=== PATIENT | male | born 1995 | race Caucasian/White ===

== ENCOUNTER 2025-05-10 20:20 | Emergency (ER) | payer BC, SELFPAY ==
--- NOTE | ~2025-05-10 | XR_ITS ---
EXAMINATION: XR chest 1V portable Exam Date/Time: 05/10/2025 21:29 CDT HISTORY: fluid overload Comparison: None. RESULT: Lines, tubes, and devices: None. Lungs and pleura: Clear. Cardiomediastinal silhouette: Unremarkable. Other: No acute osseous or upper abdominal finding. IMPRESSION: No acute cardiopulmonary process. Reviewed, dictated and finalized at location K.
[2025-05-10 20:23] VITALS: BP 143/84; PULSE 123; RESP 22; TEMP 36.4; O2SAT 99
[2025-05-10 21:35] LABS: Hematocrit 34.0 % (42.0-52.0); Hemoglobin 10.0 g/dL (14.0-18.0); Immature Granulocyte Percent A 0.9 % (0-0.5); Lymphocytes Absolute Auto 1.41 K/mm3 (0.9-3.2); Mean Corpuscular HGB Conc 29.4 g/dl (32-36); Mean Corpuscular Hemoglobin 23.7 pg (26-34); Mean Corpuscular Volume 80.6 fl (80-100); Nucleated Red Blood Cells Absolute Auto 0.000 K/mm3 (0.0-0.012); Nucleated Red Blood Cells Perc 0.0 % (0.0-0.2); Platelet Count Result 284 k/mm3 (150-375); Red Blood Count 4.22 M/mm3 (4.6-6.20); White Blood Count 9.4 K/mm3 (4.5-10.0)
--- OUTSIDE RECORDS SUMMARY | 2025-05-10 21:41 | XMS_ITS | Clinical Summary ---
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 Gender Identity Not on file Sexual Orientation Not on file Plan of Treatment Health Maintenance Due Date Last Done Comments Annual Physical 2000 Hepatitis C 2015 DTaP, Tdap and Td Vaccines ( 1 - Tdap) 2016 Hepatitis B Vaccines (1 of 3 - 19+ 3-dose series) 2016 COVID-19 Vaccine (2023-2 5 season) 2024 Meningococcal Vaccine Completed 04/14/2015 HPV Vaccines Aged Out No longer eligi ble based on patient's age to complete this topic Meningococcal B Vaccine Aged Out No l onger eligible based on patient's age to complete this topic Pneumococcal Vaccine: Pediat rics (0 to 5 Years) and At-Risk Patients (6 to 49 Years) Aged Out No longer eligi ble based on patient's age to complete this topic RSV Immunizations Under 20 Months Aged Out No longer eligible based on patient's age to complete this topic Insurance [employer] Member Subscriber Plan / Payer (Ef fective 2020-Present) Name:Shorty Lind Relation to Subscriber:Self Name:Shorty Lind Payer ID:Not on file Group ID:Not on file Type:Not on file Address: [address] [id number] Care Teams Fitness Coordinator Relationship Specialty Start Date End Date Louis Nicholson MD [address] [place] [address] PCP - General FAMILY PRACTICE 06/28/20
--- OUTSIDE RECORDS SUMMARY | 2025-05-10 21:41 | XMS_ITS | Data Portability ---
Author Organization [facility] [employer] Address [address] [place] [address] Care Team Providers Care Bill Clerk Name Role Phone KINGSTONTONSAUL Primary Care Provider [phone] Assessment Encounter Date Assessment Date Assessment LastModified by Organization Details LastModified Time 08/02/2022 08/02/2022 New patient presented for admission to the practice. Studies ordered as below. Discussed plan with patient, who expressed understanding . Follow up as noted below. [email or web address] Not available 08/02/2022 10:43:42 Plan of Treatment Reminders Order Date Submit Date Provider Last Modified By Organization Details Last Modified Time Details Appointments None recorded. Lab hepatitis C Ab, serum 2021 SIDDHARTH Not available 13:30:02 TSH, serum or plasma 2021 022 SIDDHARTH Not available 13:30:05 HbA1c (hemoglobi n A1c), blood 2021 ATHENAFAX Not available 11:00:36 lipid panel w/ direct LDL, serum 2021 ATHENAFAX Not available 11:00:36 CMP, serum or plasma 2021 SIDDHARTH Not available 13:30:04 CBC w/ auto diff 2021 SIDDHARTH Not available 13:30:03 Referral bariatric surgery referral 2021 [facility], [facility], [address], [place], [address], 12:30:42 optometris t referral 2021 [facility], [address] [place], [address], 12:30:41 Procedures None recorded. Surgeries None recorded. Imaging electrocar diogram 2021 [facility], [facility], [address], [place], [address], 14:23:51 Medication Orders None recorded. Patient TargetsNo targets recorded. 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 0 Not Available [facility] (Main Location) [address] ,, [place], [address], 08/03/2022 13:30:02 08/02/20 22 08/02/2022 HEPAT ITIS C ANTIB NICHOLE hepatitis C antibody Negati ve negati ve Not Available [facility] (Main Location) [address] ,, [place], [address], 08/03/2022 13:30:02 08/02/20 22 08/02/2022 COMPL ETE CBC W/AUT O DIFF WBC white blood cell count 9.1 thous and/u L 3.5-10 .0 Not Available [facility] (Main Location) [address] ,, [place], [address], 08/03/2022 13:30:03 08/02/20 22 08/02/2022 COMPL ETE CBC W/AUT O DIFF WBC red blood cell count 5.3 ishan on/uL 3.5-5. 5 Not Available [facility]Main Location[facility] [address] ,, [place], [address], 08/03/2022 13:30:03 08/02/20 22 08/02/2022 COMPL ETE CBC W/AUT O DIFF WBC hemoglobin 13.6 g/dL 11.5-1 6.5 Not Available [facility] (Main Location) [address] ,, [place], [address], 08/03/2022 13:30:03 08/02/20 22 08/02/2022 COMPL ETE CBC W/AUT O DIFF WBC hematocrit 45 % 35-55 Not Available [facility] (Main Location) [address] ,, [place], [address], 08/03/2022 13:30:03 08/02/20 22 08/02/2022 COMPL ETE CBC W/AUT O DIFF WBC MCH 26 pg 25-35 Not Available [facility] (Main Location) [address] ,, [place], [address], 08/03/2022 13:30:03 08/02/20 22 08/02/2022 COMPL ETE CBC W/AUT O DIFF WBC MCHC 30 g/dL 31-38 low Not Available [facility]Main Location[facility] [address] ,, [place], [address], 08/03/2022 13:30:03 08/02/20 22 08/02/2022 COMPL ETE CBC W/AUT O DIFF WBC MCV 85 fL 75-100 Not Available [facility]Main Location[facility] [address] [address] ,, [place], [address], 08/03/2022 13:30:03 08/02/20 22 08/02/2022 COMPL ETE CBC W/AUT O DIFF WBC RDW-CV 14 % 11-15 Not Available [facility] (Main Location) [address] ,, [place], [address], 08/03/2022 13:30:03 08/02/20 22 08/02/2022 COMPL ETE CBC W/AUT O DIFF WBC neutrophils% 71.3 % Not Available [facility]Main Location[facility] [address] ,, [place], [address], 08/03/2022 13:30:03 08/02/20 22 08/02/2022 COMPL ETE CBC W/AUT O DIFF WBC lymphocytes% 20.8 % Not Available [facility] (Main Location[facility] [address] [address] ,, [place], [address], 08/03/2022 13:30:03 08/02/20 22 08/02/2022 COMPL ETE CBC W/AUT O DIFF WBC monocytes% 5.5 % Not Available [facility] (Main Location[facility] [address] [address] ,, [place], [address], 08/03/2022 13:30:03 08/02/20 22 08/02/2022 COMPL ETE CBC W/AUT O DIFF WBC eosinophil % 1.2 % 0.0-7. 0 Not Available [facility] (Main Location[facility] [address] [address] ,, [place], [address], 08/03/2022 13:30:03 08/02/20 22 08/02/2022 COMPL ETE CBC W/AUT O DIFF WBC basophil % 0.4 % 0.0-3. 0 Not Available [facility] (Main Location[facility] [address] [address] ,, [place], [address], 08/03/2022 13:30:03 08/02/20 22 08/02/2022 COMPL ETE CBC W/AUT O DIFF WBC absolute neutrophils 6.5 cells /uL 1.5-7. 8 Not Available [facility] (Main Location) [address] ,, [place], [address], 08/03/2022 13:30:03 08/02/20 22 08/02/2022 COMPL ETE CBC W/AUT O DIFF WBC absolute lymphocytes 1.88 cells /uL 0.85-3 .90 Not Available [facility] (Main Location) [address] ,, [place], [address], 08/03/2022 13:30:03 08/02/20 22 08/02/2022 COMPL ETE CBC W/AUT O DIFF WBC absolute monocytes 0.5 cells /uL 0.2-1. 0 Not Available [facility] (Main Location) [address] ,, [place], [address], 08/03/2022 13:30:03 08/02/20 22 08/02/2022 COMPL ETE CBC W/AUT O DIFF WBC absolute eosinophils 0.1 cells /uL 0.0-0. 5 Not Available [facility] (Main Location) [address] ,, [place], [address], 08/03/2022 13:30:03 08/02/20 22 08/02/2022 COMPL ETE CBC W/AUT O DIFF WBC absolute basophils 0.0 cells /uL 0.0-0. 2 Not Available [facility] (Main Location) [address] ,, [place], [address], 08/03/2022 13:30:03 08/02/20 22 08/02/2022 COMPL ETE CBC W/AUT O DIFF WBC platelet count 385 thous and/u L 100-40 0 Not Available [facility] (Main Location) [address] ,, [place], [address], 08/03/2022 13:30:03 08/02/20 22 08/02/2022 CMP (COMP REHEN SIVE METAB OLIC PANEL ) glucose 91 mg/dL 74-99 Not Available [facility] (Main Location) [address] [place], [place] [address] ,, [place], [address], 08/03/2022 13:30:04 08/02/20 22 08/02/2022 CMP (COMP REHEN SIVE METAB OLIC PANEL ) urea nitrogen, blood (BUN) 15 mg/dL 6-20 Not Available [facility] (Main Location) [address] [place] [address] [address] ,, [place], [address], 08/03/2022 13:30:04 08/02/20 22 08/02/2022 CMP (COMP REHEN SIVE METAB OLIC PANEL ) total bilirubin 0.3 mg/dL 0.0-1. 2 Not Available [facility] (Main Location) [address] [place], [place] [address] ,, [place], [address], 08/03/2022 13:30:04 08/02/20 22 08/02/2022 CMP (COMP REHEN SIVE METAB OLIC PANEL ) total protein 8.6 g/dL 6.6-8. 7 Not Available [facility] (Main Location) [address] [place] [address] [address] ,, [place], [address], 08/03/2022 13:30:04 08/02/20 22 08/02/2022 CMP (COMP REHEN SIVE METAB OLIC PANEL ) alanine aminotransfe rase (ALT) 25 U/L 0-41 Not Available [facility] (Main Location) [address] [place] [address] [address] ,, [place], [address], 08/03/2022 13:30:04 08/02/20 22 08/02/2022 CMP (COMP REHEN SIVE METAB OLIC PANEL ) alkaline phosphatase 101 U/L 40-130 Not Available [facility] (Main Location) [address] [place] [address] [address] ,, [place], [address], 08/03/2022 13:30:04 08/02/20 22 08/02/2022 CMP (COMP REHEN SIVE METAB OLIC PANEL ) aspartate aminotransfe rase (AST) 17 U/L 0-40 Not Available [facility] (Main Location) [facility] [address] ,, [place], [address], 08/03/2022 13:30:04 08/02/20 22 08/02/2022 CMP (COMP REHEN SIVE METAB OLIC PANEL ) calcium 9.3 mg/dL 8.6-10 .2 Not Available [facility] (Main Location) [address] [place], [place] [address] ,, [place], [address], 08/03/2022 13:30:04 08/02/20 22 08/02/2022 CMP (COMP REHEN SIVE METAB OLIC PANEL ) albumin 4.7 g/dL 3.5-5. 2 Not Available [facility] (Main Location) [address] [place], [place] [address] ,, [place], [address], 08/03/2022 13:30:04 08/02/20 22 08/02/2022 CMP (COMP REHEN SIVE METAB OLIC PANEL ) CO2 28 mmol/ L 22-29 Not Available [facility] (Main Location) [address] [place], [place] [address] ,, [place], [address], 08/03/2022 13:30:04 08/02/20 22 08/02/2022 CMP (COMP REHEN SIVE METAB OLIC PANEL ) creatinine, serum 0.9 mg/dL 0.7-1. 2 Not Available [facility] (Main Location) [address] [place], [place] [address] ,, [place], [address], 08/03/2022 13:30:04 08/02/20 22 08/02/2022 CMP (COMP REHEN SIVE METAB OLIC PANEL ) sodium, serum 139 mmol/ L 136-14 5 Not Available [facility] (Main Location) [address] [place], [place] [address] ,, [place], [address], 08/03/2022 13:30:04 08/02/20 22 08/02/2022 CMP (COMP REHEN SIVE METAB OLIC PANEL ) potassium, serum 4.8 mmol/ L 3.5-5. 1 Not Available [facility] (Main Location) [address] ,, [place], [address], 08/03/2022 13:30:04 08/02/20 22 08/02/2022 CMP (COMP REHEN SIVE METAB OLIC PANEL ) chloride, serum 99 mmol/ L 98-107 Not Available [facility] (Main Location) [address] ,, [place], [place], [address], 08/03/2022 13:30:04 08/02/20 22 08/02/2022 CMP (COMP REHEN SIVE METAB OLIC PANEL ) eGFR 123 >59 Persi stent reduc tion for 3 month s or more in an eGFR <60 mL/mi n/1.7 3 m2 defin es CKD. Patie nts with eGFR value s>/=6 0 mL/mi n/1.7 3 m2 may also have CKD if evide nce of persi stent protu niuri a is prese nt. Addit ional infor joyce munson may be found at www.k doqi. org. Not Available [facility] (Main Location) [address] ,, [place], [place], [address], 08/03/2022 13:30:04 08/02/2008/02/2022 DLDL dldl 110 mg/dL 0-100 high Not Available [facility] (Main Location) [address] ,, [place], [place], [address], 08/03/2022 13:30:04 08/02/20 22 08/02/2022 LIPID PANEL trigylceride s 124 mg/dL 0-150 Not Available [facility] (Main Location) [address] ,, [place], [address], 08/03/2022 13:30:05 08/02/20 22 08/02/2022 LIPID PANEL cholesterol 171 mg/dL 0-200 Not Available [facility] (Main Location) [facility] ,, [place], [address], 08/03/2022 13:30:05 08/02/20 22 08/02/2022 LIPID PANEL uhdl 41 mg/dL 35-55 Not Available [facility] (Main Location) [facility] [address] [address] ,, [place], [address], 08/03/2022 13:30:05 08/02/20 22 08/02/2022 LIPID PANEL LDL, calculated 105 mg/dL 0-100 high Not Available [facility] (Main Location) [facility] ,, [place], [address], 08/03/2022 13:30:05 08/02/20 22 08/02/2022 LIPID PANEL LDL, measured 110 mg/dL <99 high Not Available [facility] (Main Location) [facility] [address] [address] ,, [place], [address], 08/03/2022 13:30:05 08/02/20 22 08/02/2022 LIPID PANEL LDL/HDL ratio 3 mg/dL 0-5 Not Available [facility] (Main Location) [facility] [address] [address] ,, [place], [address], 08/03/2022 13:30:05 08/02/20 22 08/02/2022 LIPID PANEL VLDL 24.8 mg/dL 5.0-40 .0 Not Available [facility] (Main Location[facility] [address] [address] ,, [place], [address], 08/03/2022 13:30:05 08/02/20 22 08/02/2022 LIPID PANEL cholesterol/ HDL ratio 4.17 0.00-5 .00 Not Available [facility] (Main Location[facility] [address] [address] ,, [place], [address], 08/03/2022 13:30:05 08/02/20 22 08/02/2022 THYRO ID DARIANA DUARTE (TSH) TSH 1.57 ?IU/m L 0.27-4 .20 Not Available [facility] (Main Location) [address] [place] [address] Rd[address] ,, [place], [address], 08/03/2022 13:30:05 08/02/20 22 08/03/2022 elect rocar diogr am No observ ation record ed. [facility], [facility] [address], [place], [address], 08/03/2022 14:24:42 08/03/20 22 08/02/2022 elect rocar diogr am No observ ation record ed. [facility], [facility] [address], [place], [address], 08/03/2022 14:24:18 Result Notes None recorded. Problems Name Problem SNOMED Code Status Onset Date Resolution Date Notes Provider Name and Address Organization Details Recorded Time Elevated blood-pressure reading without diagnosis of hypertension 265053972 Active 2021 Lobo Rondon MD [address], [place], [address], [facility] 2 10:46:46 Body mass index 40+ - severely obese 285532762 Active 2021 Lobo Rondon MD [address], [place], [address], [facility] 2 10:46:48 Congenital hypoplasia of kidney 59654303 Active 2021 Lobo Rondon MD [address], [place], [address], [facility] 2 10:52:27 Problem Notes None recorded. Medical Equipment None Reported. Allergies No known drug allergies Medications Name Sig Start Date Stop Date Status Note LastModified by Organization Details LastModified Time amoxicillin 875 mg-potassium clavulanate 125 mg tablet active Not Available Not Available No t Available ciprofloxacin 0.3 %-dexamethasone 0.1 % ear drops,suspensio n active Not Available Not Available Not Available Vitals Date Recorded Body weight Body mass index (BMI) Body height Body temperature Heart rate Respiratory rate Systolic And Diastolic Provider Name and Address Organization Details Last Updated DateTime 2 079681. 19 g 73.8 kg/m2 175.26 cm 98.7 [degF] 69 /min 18 /min 155/97 mm[Hg] Ariadna Mendiola [facility] 2 10:25:32 Social History None recorded. Functional Status None recorded. Mental Status None recorded. Family History Nothing Reported. Medical History No medical history recorded. Immunizations Vaccine Type Date Status Note Provider Nam e and Address Organization Details Recorded Time COVID-19, mRNA, LNP-S, PF, 30 mcg/0.3 mL dose 05/05/2021 completed Lobo Rondon MD [address], [place], [address], [facility] 08/02/2022 10:47:32 Past Encounters Encounter ID Performer Location Encounter Start Date Encounter Closed Date Diagnosis/Indication Diagnosis SNOMED-CT Code Diagnosis ICD10 Code Diagnosis Note [id number] Lobo Rondon MD [facility], [facility] [address] [place] [address] 08/02/2022 09:39:19 08/02/2022 11:09:27 Adult health examination 649472098 Z00.01 Body mass index 40+ - severely obese 258313244 Z68.45 Elevated blood-pressure reading without diagnosis of hypertension 334100316 R03.0 Active or passive immunization 099924464 Z23 flu and covid booster Viral screening 21526028 4 Z11.59 Congenital hypoplasia of kidney 41345606 Q60.0 has one kidney , [facility] nephrology [facility] d yearlyborn e with no Rt kidney Health Concerns Section Related Observation LastModified by Organization Detai ls LastModified Time None Recorded Concern Status LastModified by Organization Details LastModified Time None Recorded Advance Directives Directive None Recorded Payers Insurance Date Sequence Insurance Name Policy Number Policy Gilmore Covered Member ID Gilmore Member ID Guarantor Name 08/19/2023 1 [employer] ([place]) [id number] Sandra Davidson [id number] Shorty Davidson Notes Date Note Type Note Provider Name and Address Organization Details Recorded Time 08/02/2022 text/html Hypertension F/UReported bypatient.Medications: taking medications as directed; no side effects from medication Lifestyle:regular exercise; limiting/avoiding salt; compliant with low salt diet Associated Symptoms:no dizziness; no lightheadedness; no chest pain; no shortness of breath; no palpitations; no edema; no calf pain with exertion; no headacheMedicare Annual Wellness VisitReported bypatient.Diet and Nutrition:healthy diet Fracture Risk:no history of fractures; no recent explained fracture; no sudden unexplained fractures; no previous musculoskeletal injuries Physical Activity:recent increase in physical activity; good physical condition; discussed exercise habits Depression Risk:never feels sad, empty, or tearful; no loss of interest in activities; no significant changes in weight; no sleep disturbances or insomnia; no agitation; no loss of energy; no feelings of worthlessness or guilt; no thoughts of suicide; no history of depression; no history of mood disorders Orientation:no disorientation to time; no disorientation to date; no disorientation to place Concentration and Memory:no decreased concentrating ability; no memory lapses or loss; does not forget words Speech/Motor difficulties:no speech difficulties; no difficulty expressing formulated concepts; no difficulty with fine manipulative tasks; no difficulty writing/copying; no slowed reaction time; does not knock things over when trying to pick them up Hearing:no loss of hearing Vision:no vision problems Falls Risk Assessment:no frequent falls while walking; no fall in the past year; no dizziness/vertigo Home Safety:use of seatbelts; no vision or hearing loss while driving Lobo Rondon MD [address] [place] [address] [address], [place], [address], [facility] 08/02/2022 10:56:14
--- OUTSIDE RECORDS SUMMARY | 2025-05-10 21:41 | XMS_ITS | Encounter Summary ---
Author Organization 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
--- OUTSIDE RECORDS SUMMARY | 2025-05-10 21:42 | XMS_ITS | Clinical Summary ---
Author Organization [facility] Address [address] [place] [address] Care Team Providers Care Event Set Up Specialist Name Role Phone Unavailable Primary Care Provider Unavailabl e Medications No known medications Social History Tobacco Use Types Packs/Day Years Used Date Smoking Tobacco: Never Smokeless Tobacco: Never Tobacco Cessation:Counseling Given: Not Answered Alcohol Use Standard Drinks/Week Comments Never 0 (1 standard drink = 0.6 oz pur e alcohol) Sex and Gender Information Value Date Recorded Sex Assigned at Not on file Legal Sex Male 2:29 PM CDT Gender Identity Not on file Sexual Orientation Not on file Last Filed Vital Signs Vital Sign Reading Time Taken Comments Blood Pressure 111/89 10/13/2022 11:50 AM [employer] Pulse 95 10/13/2022 11:50 AM [employer] Temperature 36.5 C (97.7 F) 10/13/2022 11:30 AM [employer] Respiratory Rate 17 10/13/2022 11:50 AM [employer] Oxygen Saturation 99% 10/13/2022 11:50 AM [employer] Inhaled Oxygen Concentration - - Weight 227.7 kg (502 lb) 10/13/2022 9:55 AM [employer] Height 176.5 cm (5' 9.5) 10/13/2022 9:55 AM [employer] Body Mass Index 73.07 10/13/2022 9:55 AM [employer] Plan of Treatment Health Maintenance Due Date Last Done Comments DTAP/TDAP/TD VACCINES (1 - Tdap) 2016 HEPATITIS B VACCINES (1 of 3 - 19+ 3-dose series) 2016 INFLUENZA VACCINE (#1) 2025 HPV VACCINES Aged Out No longer eligi ble based on patient's age to complete this topic Insurance [employer] Advance Directives For more information, please contact: [phone] * Full Code (Latest Code Status on File) Date Activated Date Inactivated Comments 10/13/2022 9:54 AM 10/13/2022 2:21 PM
[2025-05-10 21:52] LABS: Alanine Aminotransferase 42 U/L (6-50); Albumin Level 3.9 g/dL (3.5-5.1); Alkaline Phosphatase 48 U/L (38-126); Anion Gap 9 mmol/L (4-12); Aspartate Amino Transferase 28 U/L (17-59); Bilirubin,Total 0.3 mg/dL (0.2-1.3); Blood Urea Nitrogen 17 mg/dL (9-20); Calcium 9.0 mg/dL (8.4-10.2); Carbon Dioxide 27 mmol/L (22-30); Chloride 101 mmol/L (98-107); Estimated CRCL calculation 241 ml/min; Estimated Glomerular Filt Rate > 60; Glucose 116 mg/dL (65-110); Potassium 4.2 mmol/L (3.4-5.0); Sodium 137 mmol/L (137-145); Total Protein 7.4 g/dL (6.3-8.2)
[2025-05-10 21:55] LABS: Hypochromasia 1+; Schistocytes None Seen
[2025-05-10 21:56] LABS: Anisocytosis 2+; Band Neutrophils Percent 0 % (0-6)
[2025-05-10 22:01] LABS: NT Pro B Type Natriuretic Pept < 20 pg/mL (19.9-100)
[2025-05-10] MEDS: FUROSEMIDE INJ 40 MG/4 ML VIAL 20 MG IV PUSH (22:23)
[2025-05-10 23:05] VITALS: BP 163/95; PULSE 116; RESP 20; O2SAT 97
--- NOTE | 2025-05-11 00:19 | ED_ITS ---
HPI - General Adult General Chief complaint: Urogenital-Male Stated complaint: Swollen Scrotum Time Seen by Provider: 05/10/25 20:25 History of Present Illness HPI narrative: Over last few days, patient has been taking some supplement drinks which contain large amounts of sodium, he has also been trying to lose weight by eating a carnivore diet. He has since noticed some swelling to his legs and scrotum, to the point where he cannot close his legs comfortably and get into his car. He has tried elevating his legs with some improvement. No chest pain, no shortness of breath, no scrotal pain. Related Data Allergies Allergy/AdvReac Type Severity Reaction Status Date / Time No Known Allergies Allergy Verified 05/10/25 20:36 Review of Systems 2 Review of Systems: All systems reviewed & are unremarkable except as noted in HPI and below Exam 2 Narrative: EXAMINATION OF ORGAN SYSTEMS/BODY AREAS: Constitutional: Vital signs per nursing GENERAL:[No acute distress, non-toxic appearing.] Extremely obese. HEAD: Normal with no signs of head trauma. EYES: EOMI, conjunctiva normal ENT: Hearing grossly intact LUNGS: Nonlabored breathing. Clear to auscultation bilaterally. 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 Scrotal edema without tenderness or discoloration. EXT: Swelling lower extremities, bilateral SKIN: [No rashes or lesions.] NEURO: [Alert and oriented x 3. No gross focal sensory or strength deficits.] PSYCH: Normal affect Course Vital Signs Vital signs: Vital Signs Temperature 97.6 F 05/10/25 20:23 Pulse Rate 123 H 05/10/25 20:23 Respiratory Rate 22 H 05/10/25 20:23 Blood Pressure 143/84 H 05/10/25 20:23 Pulse Oximetry 99 05/10/25 20:23 Oxygen Delivery Room Air 05/10/25 20:23 Temperature 97.6 F 05/10/25 20:23 Pulse Rate 116 H 05/10/25 23:05 Respiratory Rate 20 05/10/25 23:05 Blood Pressure 163/95 H 05/10/25 23:05 Pulse Oximetry 97 05/10/25 23:05 Oxygen Delivery Room Air 05/10/25 20:23 Medical Decision Making [facility] Narrative Medical decision making narrative: 30-year-old presents here with 3-4 days of increased edema to his legs and scrotum, he has been drinking supplements have large amounts of sodium. Denies any pain, denies any chest pain or shortness of breath, he has been trying to lose weight and so far has lost about 80 lb. On exam he does have what appears to be dependent edema, no scrotal tenderness. He has only 1 kidney so I did obtain labs before starting him on Lasix, he is also instructed to watch his fluid intake and especially his sodium intake. I discussed following up with primary care doctor in the next week to recheck labs to see if he can continue with the Lasix if it helps. Had talked to him about this in person, noted that it was not explicitly written in the discharge instructions so I did call and leave a voicemail reiterated that he is only to take 1 weeks worth of the Lasix at home (30 tabs had been prescribed which were to be used PRN for edema) and to stop until he was told it was okay by a PCP after rechecking labs. Vital Signs Vital Signs: Vital Signs Temperature 97.6 F 05/10/25 20:23 Pulse Rate 123 H 05/10/25 20:23 Respiratory Rate 22 H 05/10/25 20:23 Blood Pressure 143/84 H 05/10/25 20:23 Pulse Oximetry 99 05/10/25 20:23 Oxygen Delivery Room Air 05/10/25 20:23 Temperature 97.6 F 05/10/25 20:23 Pulse Rate 116 H 05/10/25 23:05 Respiratory Rate 20 05/10/25 23:05 Blood Pressure 163/95 H 05/10/25 23:05 Pulse Oximetry 97 05/10/25 23:05 Oxygen Delivery Room Air 05/10/25 20:23 Lab Data 05/10/25 21:27 05/10/25 21:27 Labs: Lab Results 05/10/25 05/10/25 Range/Units 21:27 21:27 WBC 9.4 (4.5-10.0) K/mm3 RBC 4.22 L (4.6-6.20) M/mm3 Hgb 10.0 L (14.0-18.0) g/dL Hct 34.0 L (42.0-52.0) % MCV 80.6 (80-100) fl MCH 23.7 L (26-34) pg MCHC 29.4 L (32-36) g/dl RDW 17.0 H (11.5-14.5) % Plt Count 284 (150-375) k/mm3 MPV 9.9 (7.4-10.4) fl Immature Gran % (Auto) 0.9 H (0-0.5) % Neut % (Auto) 75.5 H (45.5-73.1) % Lymph % (Auto) 15.0 L (18.3-44.2) % Monona % (Auto) 6.5 (2.6-8.5) % Eos % (Auto) 1.4 (0-4.4) % Baso % (Auto) 0.7 (0.2-1.2) % Lymph # (Auto) 1.41 (0.9-3.2) K/mm3 Monona # (Auto) 0.6 (0.1-0.6) K/mm3 Eos # (Auto) 0.1 (0-0.3) K/mm3 Baso # (Auto) 0.1 (0.0-0.1) K/mm3 Abs Immat Gran (auto) 0.08 H (0.00-0.031) K/mm3 Absolute Neuts (auto) 7.1 H (1.3-6.7) K/mm3 Absolute Nucleated RBC 0.000 (0.0-0.012) K/mm3 Band Neutrophils % 0 (0-6) % Nucleated RBC % 0.0 (0.0-0.2) % Platelet Estimate Adequate (Adequate) Hypochromasia 1+ Anisocytosis 2+ Schistocytes None seen Sodium 137 (137-145) mmol/L Potassium 4.2 (3.4-5.0) mmol/L Chloride 101 (98-107) mmol/L Carbon Dioxide 27 (22-30) mmol/L Anion Gap 9 (4-12) mmol/L BUN 17 (9-20) mg/dL Creatinine 0.94 (0.7-1.3) mg/dL Estim Creat Clear Calc 241 ml/min Estimated GFR > 60 (59 - ) Glucose 116 H (65-110) mg/dL Calcium 9.0 (8.4-10.2) mg/dL Total Bilirubin 0.3 (0.2-1.3) mg/dL AST 28 (17-59) U/L ALT 42 (6-50) U/L Alkaline Phosphatase 48 (38-126) U/L NT-Pro-B Natriuret Pep < 20 Cancelled (19.9-100) pg/mL Total Protein 7.4 (6.3-8.2) g/dL Albumin 3.9 (3.5-5.1) g/dL Discharge Plan Discharge Clinical Impression: Scrotal edema Patient Disposition: Home Condition: Stable Instructions: Edema (ED) Additional Instructions: Please follow up with a primary care doctor; you can always return for any further issues. Patient Language: Polish Prescriptions: New furosemide [Lasix] 20 mg tablet 20 mg PO DAILY Qty: 30 0RF Follow-up/Referrals: PHYSICIAN,JACK WINDER [Primary Care Provider] - Harman Marina MD [Physician] - 2 Days Stand Alone Forms: Work/School Release IP
== END 2025-05-10 23:05 | disposition home or self-care (01) ==
PROVIDERS: Emergency Provider Emergency Medicine
DX: N50.89 Other specified disorders of the male genital organs (principal)
CPT/HCPCS: 36415; 71045; 80053; 83880; 85025; 96374; 99284; J1938

== ENCOUNTER 2025-05-13 19:06 | Inpatient (IN) | payer BC, SELFPAY ==
--- NOTE | ~2025-05-13 | US_ITS ---
TESTICULAR ULTRASOUND (Doppler ultrasound interrogation techniques used as needed for this exam.) Ordering provider: Tra Baum MD History: . r/o testicular torsion . Comparison: None. FINDINGS: TESTICLES: Normal in size. The right measures 3.8x 2.6x 2.5 cm and the left measures 4x 2.4x 2.5 cm. Normal echogenicity bilaterally without mass lesion. Normal Doppler flow bilaterally. EPIDIDYMIDES: Not seen. HYDROCELE: None. VARICOCELE: None. OTHER ABNORMALITY: None seen. Severe scrotal edema is noted. IMPRESSION: Severe scrotal edema. Otherwise, normal testicular ultrasound. Reviewed, dictated and finalized at location A.
--- NOTE | ~2025-05-13 | XR_ITS ---
XR chest 1V portable Ordering provider: Puneet Osorio MD History: 30 years Male with . edema . Comparison: May 10, 2025 FINDINGS: MEDIASTINUM: The cardiac silhouette is not enlarged. LUNGS: No infiltrates, effusions or pneumothorax. OTHER: No free air under the diaphragm. IMPRESSION: No acute cardiopulmonary pathology. Reviewed, dictated and finalized at location A.
--- NOTE | ~2025-05-13 | US_ITS ---
BILATERAL LOWER EXTREMITY VENOUS ULTRASOUND Ordering provider: Marie Salazar MD History: . Swelling . Comparison: None. FINDINGS: RIGHT LOWER EXTREMITY VEINS: --COMMON FEMORAL: Patent and free of thrombus. Normal compressibility, phasic flow and augmentation. --PROXIMAL SUPERFICIAL FEMORAL: Patent and free of thrombus. Normal compressibility, phasic flow and augmentation. --DISTAL SUPERFICIAL FEMORAL: Patent and free of thrombus. Normal compressibility, phasic flow and au gmentation. --POPLITEAL: Patent and free of thrombus. Normal compressibility, phasic flow and augmentation. --POSTERIOR TIBIAL: Patent and free of thrombus. Normal compressibility, phasic flow and augmentation . LEFT LOWER EXTREMITY VEINS: --COMMON FEMORAL: Thrombosed. --PROXIMAL SUPERFICIAL FEMORAL: Thrombosed. --DISTAL SUPERFICIAL FEMORAL: Thrombosed. --POPLITEAL: Patent and free of thrombus. Normal compressibility, phasic flow and augmentation. --POSTERIOR TIBIAL: Patent and free of thrombus. Normal compressibility, phasic flow and augmentation . Greater saphenous vein: Thrombosed. IMPRESSION: DVT in the left lower extremity veins. Other appearances are unremarkable. Physician: Marie Salazar MD Was notified with the result of the patient at 5:55 PM on May 16, 2025 Reviewed, dictated and finalized at location A.
[2025-05-13 19:07] VITALS: BP 182/110; PULSE 133; RESP 24; TEMP 36.3; O2SAT 97
--- OUTSIDE RECORDS SUMMARY | 2025-05-13 19:08 | XMS_ITS | Encounter Summary ---
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
--- OUTSIDE RECORDS SUMMARY | 2025-05-13 19:08 | XMS_ITS | Clinical Summary ---
Author Organization [facility] Administrative Offices Address [address] [place] [id number] Care Team Providers Care Ad Setter Name Role Phone Unavailable Primary Care Provider [...] Comments Blood Pressure 111/89 10/13/2022 11:50 AM SUPERVISOR AIRCRAFT CLEANING Pulse 95 10/13/2022 11:50 AM SUPERVISOR [employer] Temperature 36.5 C (97.7 F) 10/13/2022 11:30 AM SUPERVISOR [employer] Respiratory Rate 17 10/13/2022 11:50 AM SUPERVISOR [employer]CRA[employer] Oxygen Saturation 99% 10/13/2022 11:50 AM SUPERVISOR [employer]ING Inhaled Oxygen Concentration - - Weight 227.7 kg (502 lb) 10/13/2022 9:55 AM SUPERVISOR [employer] Height 176.5 cm (5' 9.5) 10/13/2022 9:55 AM SUPERVISOR AIR[employer]ING Body Mass Index 73.07 10/13/2022 9:55 AM SUPERVISOR [employer] Plan of Treatment Health Maintenance Due Date Last Done Comments DTAP/TDAP/TD VACCINES (1 - Tdap) 2016 HEPATITIS B VACCINES (1 of 3 - 19+ 3-dose series) 2016 INFLUENZA VACCINE (#1) 2025 HPV VACCINES Aged Out No longer eligi ble based on patient's age to complete this topic Insurance [employer] Advance Directives For more information, please contact: [phone] * Full Code (Latest Code Status on File) Date Activated Date Inactivated Comments 10/13/2022 9:54 AM 10/13/2022 2:21 PM
--- OUTSIDE RECORDS SUMMARY | 2025-05-13 19:08 | XMS_ITS | Clinical Summary ---
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
--- OUTSIDE RECORDS SUMMARY | 2025-05-13 19:08 | XMS_ITS | Data Portability ---
Author Organization [facility] [employer] Address [address] [facility] [address] [place] [address] Care Team Providers Care Glove Turner And Former Automatic Name Role Phone KINGSTONTON BUENOSAUL Primary Care Provider Assessment Encounter Date Assessment Date Assessment LastModified [...] available 13:30:03 Referral bariatric surgery referral 2021 [facility], [facility], [address], [address], [place], [address], 12:30:42 optometris t referral 2021 [facility], [address] [place], [address], 12:30:41 Procedures None recorded. Surgeries None recorded. Imaging electrocar diogram 2021 [facility], [facility], [address], [place], [address], 14:23:51 Medication Orders None recorded. Patient TargetsNo targets recorded. 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 ,, [place], [address], 08/03/2022 13:30:02 08/02/20 22 08/02/2022 HEPAT ITIS C ANTIB NICHOLE hepatitis C antibody Negati ve negati ve Not Available [facility] (Main Location) [address] ,, [place], [address], 08/03/2022 13:30:02 08/02/20 22 08/02/2022 COMPL ETE CBC W/AUT O DIFF WBC white blood cell count 9.1 thous and/u L 3.5-10 .0 Not Available [facility] (Main Location) [address] ,, [place], [address], 08/03/2022 13:30:03 08/02/20 22 08/02/2022 COMPL ETE CBC W/AUT O DIFF WBC red blood cell count 5.3 ihsan on/uL 3.5-5. 5 Not Available [facility] [address] ,, [place], [address], 08/03/2022 13:30:03 08/02/20 22 08/02/2022 COMPL ETE CBC W/AUT O DIFF WBC hemoglobin 13.6 g/dL 11.5-1 6.5 Not Available [facility] (Main Location) [address] ,, [place], [address], 08/03/2022 13:30:03 08/02/20 22 08/02/2022 COMPL ETE CBC W/AUT O DIFF WBC hematocrit 45 % 35-55 Not Available [facility] (Main Location) [address] ,, [place], [address], 08/03/2022 13:30:03 08/02/20 22 08/02/2022 COMPL ETE CBC W/AUT O DIFF WBC MCH 26 pg 25-35 Not Available [facility] (Main Location) [address] ,, [place], [address], 08/03/2022 13:30:03 08/02/20 22 08/02/2022 COMPL ETE CBC W/AUT O DIFF WBC MCHC 30 g/dL 31-38 low Not Available [facility]Main Location[facility] [address] ,, [place], [address], 08/03/2022 13:30:03 08/02/20 22 08/02/2022 COMPL ETE CBC W/AUT O DIFF WBC MCV 85 fL 75-100 Not Available [facility]Main Location[facility] [address] ,, [place], [address], 08/03/2022 13:30:03 08/02/20 22 08/02/2022 COMPL ETE CBC W/AUT O DIFF WBC RDW-CV 14 % 11-15 Not Available [facility] (Main Location) [address] ,, [place], [address], 08/03/2022 13:30:03 08/02/20 22 08/02/2022 COMPL ETE CBC W/AUT O DIFF WBC neutrophils% 71.3 % Not Available [facility]Main Location[facility] ,, [place], [address], 08/03/2022 13:30:03 08/02/20 22 08/02/2022 COMPL ETE CBC W/AUT O DIFF WBC lymphocytes% 20.8 % Not Available [facility]Main Location[facility] ,, [place], [address], 08/03/2022 13:30:03 08/02/20 22 08/02/2022 COMPL ETE CBC W/AUT O DIFF WBC monocytes% 5.5 % Not Available [facility]Main Location[facility] [address] ,, [place], [address], 08/03/2022 13:30:03 08/02/20 22 08/02/2022 COMPL ETE CBC W/AUT O DIFF WBC eosinophil % 1.2 % 0.0-7. 0 Not Available [facility]Main Location[facility] [address] ,, [place], [address], 08/03/2022 13:30:03 08/02/20 22 08/02/2022 COMPL ETE CBC W/AUT O DIFF WBC basophil % 0.4 % 0.0-3. 0 Not Available [facility]Main Location[facility] [address] ,, [place], [address], 08/03/2022 13:30:03 08/02/20 22 08/02/2022 COMPL ETE CBC W/AUT O DIFF WBC absolute neutrophils 6.5 cells /uL 1.5-7. 8 Not Available [facility] (Main Location) [address] ,, [place], [address], 08/03/2022 13:30:03 08/02/20 22 08/02/2022 COMPL ETE CBC W/AUT O DIFF WBC absolute lymphocytes 1.88 cells /uL 0.85-3 .90 Not Available [facility] (Main Location) [address] ,, [place], [address], 08/03/2022 13:30:03 08/02/20 22 08/02/2022 COMPL ETE CBC W/AUT O DIFF WBC absolute monocytes 0.5 cells /uL 0.2-1. 0 Not Available [facility] (Main Location) [address] ,, [place], [address], 08/03/2022 13:30:03 08/02/20 22 08/02/2022 COMPL ETE CBC W/AUT O DIFF WBC absolute eosinophils 0.1 cells /uL 0.0-0. 5 Not Available [facility] (Main Location) [address] ,, [place], [address], 08/03/2022 13:30:03 08/02/20 22 08/02/2022 COMPL ETE CBC W/AUT O DIFF WBC absolute basophils 0.0 cells /uL 0.0-0. 2 Not Available [facility] (Main Location) [address] ,, [place], [address], 08/03/2022 13:30:03 08/02/20 22 08/02/2022 COMPL ETE CBC W/AUT O DIFF WBC platelet count 385 thous and/u L 100-40 0 Not Available [facility] (Main Location) [address] ,, [place], [address], 08/03/2022 13:30:03 08/02/20 22 08/02/2022 CMP (COMP REHEN SIVE METAB OLIC PANEL ) glucose 91 mg/dL 74-99 Not Available [facility] (Main Location) [address] [place], [place] [address] ,, [place], [address], 08/03/2022 13:30:04 08/02/20 22 08/02/2022 CMP (COMP REHEN SIVE METAB OLIC PANEL ) urea nitrogen, blood (BUN) 15 mg/dL 6-20 Not Available [facility] (Main Location) [address] [place] [address] [address] ,, [place], [address], 08/03/2022 13:30:04 08/02/20 22 08/02/2022 CMP (COMP REHEN SIVE METAB OLIC PANEL ) total bilirubin 0.3 mg/dL 0.0-1. 2 Not Available [facility] (Main Location) [address] [place], [place] [address] ,, [place], [address], 08/03/2022 13:30:04 08/02/20 22 08/02/2022 CMP (COMP REHEN SIVE METAB OLIC PANEL ) total protein 8.6 g/dL 6.6-8. 7 Not Available [facility] (Main Location) [address] [place] [address] [address] ,, [place], [address], 08/03/2022 13:30:04 08/02/20 22 08/02/2022 CMP (COMP REHEN SIVE METAB OLIC PANEL ) alanine aminotransfe rase (ALT) 25 U/L 0-41 Not Available [facility] (Main Location) [address] [place] [address] [address] ,, [place], [address], 08/03/2022 13:30:04 08/02/20 22 08/02/2022 CMP (COMP REHEN SIVE METAB OLIC PANEL ) alkaline phosphatase 101 U/L 40-130 Not Available [facility] (Main Location) [address] [place] [address] [address] ,, [place], [address], 08/03/2022 13:30:04 08/02/20 22 08/02/2022 CMP (COMP REHEN SIVE METAB OLIC PANEL ) aspartate aminotransfe rase (AST) 17 U/L 0-40 Not Available [facility] (Main Location) [facility] [address] ,, [place], [address], 08/03/2022 13:30:04 08/02/20 22 08/02/2022 CMP (COMP REHEN SIVE METAB OLIC PANEL ) calcium 9.3 mg/dL 8.6-10 .2 Not Available [facility] (Main Location) [address] [place], [place] [address] ,, [place], [address], 08/03/2022 13:30:04 08/02/20 22 08/02/2022 CMP (COMP REHEN SIVE METAB OLIC PANEL ) albumin 4.7 g/dL 3.5-5. 2 Not Available [facility] (Main Location) [address] [place], [place] [address] ,, [place], [address], 08/03/2022 13:30:04 08/02/20 22 08/02/2022 CMP (COMP REHEN SIVE METAB OLIC PANEL ) CO2 28 mmol/ L 22-29 Not Available [facility] (Main Location) [address] [place], [place] [address] ,, [place], [address], 08/03/2022 13:30:04 08/02/20 22 08/02/2022 CMP (COMP REHEN SIVE METAB OLIC PANEL ) creatinine, serum 0.9 mg/dL 0.7-1. 2 Not Available [facility] (Main Location) [address] [place], [place] [address] ,, [place], [address], 08/03/2022 13:30:04 08/02/20 22 08/02/2022 CMP (COMP REHEN SIVE METAB OLIC PANEL ) sodium, serum 139 mmol/ L 136-14 5 Not Available [facility] (Main Location) [address] [place], [place] [address] ,, [place], [address], 08/03/2022 13:30:04 08/02/20 22 08/02/2022 CMP (COMP REHEN SIVE METAB OLIC PANEL ) potassium, serum 4.8 mmol/ L 3.5-5. 1 Not Available [facility] (Main Location) [address] ,, [place], [address], 08/03/2022 13:30:04 08/02/20 22 08/02/2022 CMP (COMP REHEN SIVE METAB OLIC PANEL ) chloride, serum 99 mmol/ L 98-107 Not Available [facility] (Main Location) [address] ,, [place], [place], [address], 08/03/2022 13:30:04 08/02/20 22 08/02/2022 CMP (COMP [...] Location) [address] ,, [place], [place], [address], 08/03/2022 13:30:04 08/02/2008/02/2022 DLDL dldl 110 mg/dL 0-100 high Not Available [facility] (Main Location) [address] ,, [place], [place], [address], 08/03/2022 13:30:04 08/02/20 22 08/02/2022 LIPID PANEL trigylceride s 124 mg/dL 0-150 Not Available [facility] (Main Location) [address] ,, [place], [address], 08/03/2022 13:30:05 08/02/20 22 08/02/2022 LIPID PANEL cholesterol 171 mg/dL 0-200 Not Available [facility] (Main Location) [facility] ,, [place], [address], 08/03/2022 13:30:05 08/02/20 22 08/02/2022 LIPID PANEL uhdl 41 mg/dL 35-55 Not Available [facility] (Main Location[facility] [address] ,, [place], [address], 08/03/2022 13:30:05 08/02/20 22 08/02/2022 LIPID PANEL LDL, calculated 105 mg/dL 0-100 high Not Available [facility] (Main Location) [facility] ,, [place], [address], 08/03/2022 13:30:05 08/02/20 22 08/02/2022 LIPID PANEL LDL, measured 110 mg/dL <99 high Not Available [facility]Main Location[facility] [address] ,, [place], [address], 08/03/2022 13:30:05 08/02/20 22 08/02/2022 LIPID PANEL LDL/HDL ratio 3 mg/dL 0-5 Not Available [facility]Main Location[facility] [address] ,, [place], [address], 08/03/2022 13:30:05 08/02/20 22 08/02/2022 LIPID PANEL VLDL 24.8 mg/dL 5.0-40 .0 Not Available [facility]Main Location[facility] [address] ,, [place], [address], 08/03/2022 13:30:05 08/02/20 22 08/02/2022 LIPID PANEL cholesterol/ HDL ratio 4.17 0.00-5 .00 Not Available [facility]Main Location[facility] [address] ,, [place], [address], 08/03/2022 13:30:05 08/02/20 22 08/02/2022 THYRO ID DARIANA DUARTE (TSH) TSH 1.57 ?IU/m L 0.27-4 .20 Not Available [facility] (Main Location) [address] [place] [address] Rd[address] ,, [place], [address], 08/03/2022 13:30:05 08/02/20 22 08/03/2022 elect rocar diogr am No observ ation record ed. [facility], [facility] [address], [place], [address], 08/03/2022 14:24:42 08/03/20 22 08/02/2022 elect rocar diogr am No observ ation record ed. [facility], [facility] [address], [place], [address], 08/03/2022 14:24:18 Result Notes None recorded. 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 [...] Address Organization Details Last Updated DateTime 2 327468. 19 g 73.8 kg/m2 175.26 cm 98.7 [degF] 69 /min 18 /min 155/97 mm[Hg] Ariadna Mendiola [facility] 2 10:25:32 Social History None recorded. Functional Status None recorded. Mental Status None recorded. Family History Nothing Reported. Medical History No medical history recorded. Immunizations Vaccine Type Date Status Note Provider Nam e and Address Organization Details Recorded Time COVID-19, mRNA, LNP-S, PF, 30 mcg/0.3 mL dose 05/05/2021 completed Lobo Rondon MD [address], [place], [address], [facility] 08/02/2022 10:47:32 Past Encounters Encounter ID Performer Location Encounter Start Date Encounter Closed Date Diagnosis/Indication Diagnosis SNOMED-CT Code Diagnosis ICD10 Code Diagnosis Note [id number] Lobo Rondon MD [facility], [facility] [address] [place] [address] 08/02/2022 09:39:19 08/02/2022 11:09:27 Adult health examination 293662332 Z00.01 Body mass index 40+ - severely obese 935821177 Z68.45 Elevated blood-pressure reading without diagnosis of hypertension 920266524 R03.0 Active or passive immunization 240378434 Z23 flu and covid booster Viral screening 85520463 4 Z11.59 Congenital hypoplasia of kidney 69601192 Q60.0 has one kidney , [facility] nephrology @ [facility] d yearlyborn e with no Rt kidney Health Concerns Section Related Observation LastModified by Organization Detai ls LastModified Time None Recorded Concern Status LastModified by Organization Details LastModified Time None Recorded Advance Directives Directive None Recorded Payers Insurance Date Sequence Insurance Name Policy Number Policy Gilmore Covered Member ID Gilmore Member ID Guarantor Name 08/19/2023 1 [employer] [id number] Sandra Davidson [id number] Shorty Davidson Notes Date Note Type [...] hearing loss while driving Lobo Rondon MD [address] [place] [address] [address], [place], [address], [facility] 08/02/2022 10:56:14
--- OUTSIDE RECORDS SUMMARY | 2025-05-13 20:28 | XMS_ITS | Clinical Summary ---
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
--- OUTSIDE RECORDS SUMMARY | 2025-05-13 20:28 | XMS_ITS | Clinical Summary ---
Author Organization [facility] Administrative Offices Address [address] [place] [id number] Care Team Providers Care Director Of Curriculum And Instruction Name Role Phone Unavailable Primary Care Provider [...] Comments Blood Pressure 111/89 10/13/2022 11:50 AM OIL DRILLING ENGINEER Pulse 95 10/13/2022 11:50 AM OIL DRILLING ENGINEER Temperature 36.5 C (97.7 F) 10/13/2022 11:30 AM OIL DRILLING ENGINEER Respiratory Rate 17 10/13/2022 11:50 AM OIL DRILLING ENGINEER Oxygen Saturation 99% 10/13/2022 11:50 AM OIL DRILLING ENGINEER Inhaled Oxygen Concentration - - Weight 227.7 kg (502 lb) 10/13/2022 9:55 AM OIL DRILLING ENGINEER Height 176.5 cm (5' 9.5) 10/13/2022 9:55 AM OIL DRILLING ENGINEER Body Mass Index 73.07 10/13/2022 9:55 AM OIL DRILLING ENGINEER Plan of Treatment Health Maintenance Due Date Last Done Comments DTAP/TDAP/TD VACCINES (1 - Tdap) 2016 HEPATITIS B VACCINES (1 of 3 - 19+ 3-dose series) 2016 INFLUENZA VACCINE (#1) 2025 HPV VACCINES Aged Out No longer eligi ble based on patient's age to complete this topic Insurance [employer] Advance Directives For more information, please contact: [phone] * Full Code (Latest Code Status on File) Date Activated Date Inactivated Comments 10/13/2022 9:54 AM 10/13/2022 2:21 PM
--- OUTSIDE RECORDS SUMMARY | 2025-05-13 20:28 | XMS_ITS | Encounter Summary ---
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
--- NOTE | 2025-05-13 20:52 | ED_ITS ---
HPI - General Adult General Chief complaint: Urogenital-Male Stated complaint: swollen scrotum, severe pain Time Seen by Provider: 05/13/25 20:09 History of Present Illness HPI narrative: 30-year-old male presents to the emergency department for evaluation for worsening swelling of his scrotum. Patient states he has had worsening lower extremity swelling and scrotal swelling over course of the last 2 weeks. Patient did have recent evaluation in the emergency department and was treated with IV Lasix along with p.o. Lasix for the last few days. Patient states he is having urinary output but states he has continued to have worsening leg edema and scrotal swelling. States typically when he has leg swelling he is able to get up and ambulate and this helps with the lower extremity swelling but patient states since his scrotum is so swollen he is unable to ambulate at this time. Patient denies any associated chest pain or shortness of breath. Related Data Allergies Allergy/AdvReac Type Severity Reaction Status Date / Time No Known Allergies Allergy Verified 05/13/25 21:13 Review of Systems 2 Review of Systems: All systems reviewed & are unremarkable except as noted in HPI and below Exam 2 Narrative: APPEARANCE: Uncomfortable appearing HEAD: normocephalic, atraumatic. EYES: PERRLA/EOMI, conjunctivae clear. NOSE: Normal no drainage EARS:TMS clear with good light reflex. THROAT: Pharynx clear, no exudate. NECK: Supple. No adenopathy, no masses. RESPIRATORY: Airway patent, respirations nonlabored. Clear to auscultation bilaterally, no rales, rhonchi, wheezing. CARDIOVASCULAR: Regular rate and rhythm without murmurs rubs or gallops. ABDOMINAL: Soft, nontender, nondistended, normal bowel sounds MUSCULOSKELETAL: Bilateral lower extremity swelling with pitting edema to entire leg NEURO: Alert. Cranial nerves II through XII intact. Good gait. Good coordination Genital exam: Pitting scrotal edema without evidence of cellulitis Course Vital Signs Vital signs: Vital Signs Temperature 97.3 F L 05/13/25 19:07 Pulse Rate 133 H 05/13/25 19:07 Respiratory Rate 24 H 05/13/25 19:07 Blood Pressure 182/110 H 05/13/25 19:07 Pulse Oximetry 97 05/13/25 19:07 Oxygen Delivery Room Air 05/13/25 19:07 Temperature 97.3 F L 07/09/25 19:07 Pulse Rate 107 H 05/13/25 21:12 Respiratory Rate 21 H 05/13/25 21:12 Blood Pressure 152/99 H 05/13/25 21:12 Pulse Oximetry 94 05/13/25 21:12 Oxygen Delivery Room Air 05/13/25 19:07 Medical Decision Making MDM Narrative Medical decision making narrative: 30-year-old male presents to the emergency department for evaluation for worsening lower extremity and scrotal edema. During his last visit outpatient diuresis was attempted but patient continues to have worsening swelling. Patient is afebrile and denies any chest pain or shortness of breath. Patient's kidney function is not significantly changed compared to his last visit. Patient's proBNP is not elevated. Patient was treated with IV Lasix and scheduled IV Lasix was ordered. Case was discussed with hospitalist patient was accepted for admission. Differential Diagnosis Differential Diagnosis: CHF, pneumonia, UTI, tachycardia, anasarca Vital Signs Vital Signs: Vital Signs Temperature 97.3 F L 05/13/25 19:07 Pulse Rate 133 H 05/13/25 19:07 Respiratory Rate 24 H 05/13/25 19:07 Blood Pressure 182/110 H 05/13/25 19:07 Pulse Oximetry 97 05/13/25 19:07 Oxygen Delivery Room Air 05/13/25 19:07 Temperature 97.3 F L 05/13/25 19:07 Pulse Rate 107 H 05/13/25 21:12 Respiratory Rate 21 H 05/13/25 21:12 Blood Pressure 152/99 H 05/13/25 21:12 Pulse Oximetry 94 05/13/25 21:12 Oxygen Delivery Room Air 05/13/25 19:07 Lab Data Lab results reviewed: Yes I reviewed the patient's lab results. 05/13/25 20:59 05/13/25 20:59 Labs: Lab Results 05/13/25 05/13/25 Range/Units 20:59 20:59 WBC 9.4 (4.5-10.0) K/mm3 RBC 4.37 L (4.6-6.20) M/mm3 Hgb 10.2 L (14.0-18.0) g/dL Hct 34.2 L (42.0-52.0) % MCV 78.3 L (80-100) fl MCH 23.3 L (26-34) pg MCHC 29.8 L (32-36) g/dl RDW 16.7 H (11.5-14.5) % Plt Count 252 (150-375) k/mm3 MPV 9.8 (7.4-10.4) fl Immature Gran % (Auto) Not Reportable Neut % (Auto) Not Reportable Lymph % (Auto) Not Reportable [place] % (Auto) Not Reportable Eos % (Auto) Not Reportable Baso % (Auto) Not Reportable Lymph # (Auto) Not Reportable [place] # (Auto) Not Reportable Eos # (Auto) Not Reportable Baso # (Auto) Not Reportable Abs Immat Gran (auto) Not Reportable Absolute Neuts (auto) Not Reportable Absolute Nucleated RBC Not Reportable Total Counted 100 Neutrophils % (Manual) 78 H (46-73) % Band Neutrophils % 3 (0-6) % Lymphocytes % (Manual) 10.0 L (18-44) % Monocytes % (Manual) 8 (3-9) % Eosinophils % (Manual) 1 (0-4) % Nucleated RBC % Not Reportable Abs Neuts (Manual) 7.61 H (1.3-6.7) K/mm3 Abs Lymphs (Manual) 0.94 L (1.1-4.5) K/mm3 Abs Monocytes (Manual) 0.75 (0.1-0.90) K/mm3 Absolute Eos (Manual) 0.09 (0.02-0.50) K/mm3 Platelet Estimate Adequate (Adequate) Hypochromasia 1+ Anisocytosis 2+ Schistocytes None seen Sodium 131 L (137-145) mmol/L Potassium 4.3 (3.4-5.0) mmol/L Chloride 96 L (98-107) mmol/L Carbon Dioxide 24 (22-30) mmol/L Anion Gap 11 (4-12) mmol/L BUN 14 (9-20) mg/dL Creatinine 1.09 (0.7-1.3) mg/dL Estim Creat Clear Calc 203 ml/min Estimated GFR > 60 (59 - ) Glucose 115 H (65-110) mg/dL Calcium 9.0 (8.4-10.2) mg/dL Total Bilirubin 0.9 (0.2-1.3) mg/dL AST 32 (17-59) U/L ALT 38 (6-50) U/L Alkaline Phosphatase 69 (38-126) U/L NT-Pro-B Natriuret Pep < 20 Cancelled (19.9-100) pg/mL Total Protein 8.0 (6.3-8.2) g/dL Albumin 4.1 (3.5-5.1) g/dL Imaging Data Radiologist's impression: Impressions Scrotum Ultrasound 05/13/25 21:12 IMPRESSION: Severe scrotal edema. Otherwise, normal testicular ultrasound. Chest X-Ray 05/13/25 22:01 IMPRESSION: No acute cardiopulmonary pathology. Discharge Plan Discharge Clinical Impression: Bilateral leg edema, Edema of scrotum Patient Disposition: Still a Patient Condition: Stable Patient Language: [place] Prescriptions: No Action furosemide [Lasix] 20 mg tablet 20 mg PO DAILY Qty: 30 0RF Follow-up/Referrals: PHYSICIAN,COST ESTIMATOR [Primary Care Provider] -
[2025-05-13 21:06] LABS: Hematocrit 34.2 % (42.0-52.0); Hemoglobin 10.2 g/dL (14.0-18.0); Mean Corpuscular HGB Conc 29.8 g/dl (32-36); Mean Corpuscular Hemoglobin 23.3 pg (26-34); Mean Corpuscular Volume 78.3 fl (80-100); Platelet Count Result 252 k/mm3 (150-375); Red Blood Count 4.37 M/mm3 (4.6-6.20); White Blood Count 9.4 K/mm3 (4.5-10.0)
[2025-05-13 21:12] VITALS: BP 152/99; PULSE 107; RESP 21; O2SAT 94
[2025-05-13 21:18] LABS: Alanine Aminotransferase 38 U/L (6-50); Albumin Level 4.1 g/dL (3.5-5.1); Alkaline Phosphatase 69 U/L (38-126); Anion Gap 11 mmol/L (4-12); Aspartate Amino Transferase 32 U/L (17-59); Bilirubin,Total 0.9 mg/dL (0.2-1.3); Blood Urea Nitrogen 14 mg/dL (9-20); Calcium 9.0 mg/dL (8.4-10.2); Carbon Dioxide 24 mmol/L (22-30); Chloride 96 mmol/L (98-107); Estimated CRCL calculation 203 ml/min; Estimated Glomerular Filt Rate > 60; Glucose 115 mg/dL (65-110); Potassium 4.3 mmol/L (3.4-5.0); Sodium 131 mmol/L (137-145); Total Protein 8.0 g/dL (6.3-8.2)
[2025-05-13 21:27] LABS: NT Pro B Type Natriuretic Pept < 20 pg/mL (19.9-100)
[2025-05-13] MEDS: FUROSEMIDE INJ 40 MG/4 ML VIAL IV PUSH (21:32)
[2025-05-13 21:41] LABS: Band Neutrophils Percent 3 % (0-6); Eosinophils Absolute Manual 0.09 K/mm3 (0.02-0.50); Eosinophils Percent Manual 1 % (0-4); Lymphocytes Absolute Manual 0.94 K/mm3 (1.1-4.5); Lymphocytes Percent Manual 10.0 % (18-44); Monocytes Absolute Manual 0.75 K/mm3 (0.1-0.90); Monocytes Percent Manual 8 % (3-9); Neutrophils Absolute Manual 7.61 K/mm3 (1.3-6.7); Neutrophils Percent Manual 78 % (46-73); Total Cells Counted 100
[2025-05-13 21:42] LABS: Anisocytosis 2+; Hypochromasia 1+; Schistocytes None Seen
--- NOTE | 2025-05-13 21:45 | ECG_ITS ---
Test Date: 2025-05-13 21:52:41 Measurements Intervals [place] Rate: 111 P: 24 NM: 140 QRS: 72 QRSD: 86 T: 30 QT: 319 QTc: 434 Interpretive Statements SINUS TACHYCARDIA ABNORMAL RHYTHM ECG No previous ECG available for comparison Electronically Signed On 05-14-2025 11:49:13 CDT by Lang Duckworth M.D.
--- NOTE | 2025-05-13 21:45 | PC.NURSE ---
Patient stated he would rather stay in his own clothes than to change into a hospital gown.
--- NOTE | 2025-05-13 21:56 | PC.NURSE ---
Patient asked for urine sample at this time and stated he will have to wait until the lasix dose kicks in.
[2025-05-13 22:29] VITALS: BP 116/97; PULSE 114; RESP 20; O2SAT 97
--- NOTE | 2025-05-13 22:29 | PC.NURSE ---
Pt attempted to provide urine sample. No success. Refused [facility].
--- NOTE | 2025-05-13 22:50 | PC.NURSE ---
Attempted to call report to WALTER Costa. 2nd RN stated she was not off of the floor grabbing a bariatric bed. RN to call back for report. @ [phone]
--- NOTE | 2025-05-13 23:35 | ADMGEN ---
This patient, Shorty Lind, was admitted to Medical Room 348-01. Patient/family oriented to hospital policies and general routines including ID bracelet, bed and alarms, visiting hours, pain management, procedures, bathroom and other care routines, personal items, smoking policy, room service/diet, and visiting hours. Information on how to activate the Rapid Response Team has been discussed. Patient/Family are encouraged to report perceived risks to care and to ask questions if they do not understand what they are told or what they should do.
[2025-05-14] MEDS: KETOROLAC 30 MG/ML VIAL (*BKC) IV PUSH ×2 (00:45→21:25)
--- NOTE | 2025-05-14 01:06 | P.HP_ITS ---
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 The patient was initially evaluated in the ER on 05/10/2025 and returned to the ER on 05/13/2025 due to persistent scrotal swelling. The patient had been eating a car in a poor diet and drinking supplement drinks that contained a large amount of sodium. He then noticed some increased swelling in his scrotum. The symptoms started about 2 weeks ago. Is accompanied by some increased lower extremity swelling. The swelling and gotten to the point that he could not close his legs comfortably to get in the to the car. He has tried elevating his legs and his scrotum and has not really had much in the way of improvement. He came to the ER on the and was given prescription for Lasix 20 mg daily after receiving 40 mg of IV Lasix x1. The Lasix and elevation of the scrotum still did not help with the edema. He is still having urine output a but had not noticed any increased urine output since starting the Lasix. He reports that he does intermittently have lower extremity edema at home but he is usually able to resolve his lower extremity edema with ambulation and he usually wears compression underwear. He has not had any chest pain, orthopnea or paroxysmal nocturnal dyspnea. His with bedside reports that he does snore a mildly but the patient reports that he sleeps well and has no concerns about his sleeping. He denies paroxysmal nocturnal dyspnea. He he has not had any fevers, chills, dysuria room or penile discharge. He denies any rashes or erythema. He denies risk for sexually transmitted diseases. He denies any history of chronic kidney disease despite having unilateral kidney. He reports that since the swelling in his scrotum has started it is affected is mood because he felt like he was making good progress on eating a better diet to try to lose weight. Now that he has not been able to get up and move around he is extremely frustrated and admits that he has been resorting to food for comfort. He states that since he has been laying in bed all the time to try to keep his legs up and edema out of his scrotum he has developed some back pain. His reported the patient is probably at about 6 g of Tylenol today. He does not usually use Tylenol to excess. He does use triamcinolone cream to treat some of the thickened skin on his lower extremities that is due to lipedema. His white count was normal. His hemoglobin was low at 10 he denies any hematochezia melena or hematuria. He has not seen a primary care physician in 2 or 3 years. He is in the process of being evaluated by bariatric surgeons for possible weight loss surgery. Patient did have some mild hyperglycemia on labs in the ER he denies history of known diabetes. Review of Systems 2 Review of Systems: 12 systems were reviewed with pertinent positives and negatives per HPI. Except as documented in the HPI, all other systems were reviewed and are negative. 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 They do not have any children. 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 He only drinks 1 alcoholic beverage a year. He denies any history of tobacco or illicit substance use. Code status: Full code Surrogate decision maker: Smoking status: Never smoker Alcohol intake: never Substance use: never Substance use type: does not use Do You Feel Safe in your Home?: Yes Lack of Transportation: No Lack of Food: Never True Current Housing: I Have Housing Concerned About Future Housing: No Difficulty Paying Gas/Electric Bills: No Difficulty Paying for Meds: No Currently Unemployed: No Education: Associate Degree Difficulty w/ Childcare or Family Care: No Spiritual care concerns: No Meds Home Medications and Allergies Home Medications ?Medication ?Instructions ?Recorded ?Confirmed ?Type furosemide 20 mg tablet (Lasix) 20 mg PO DAILY 05/13/25 05/13/25 History triamcinolone acetonide 0.1 % 1 applic topical DAILY 05/13/25 05/14/25 History topical cream acetaminophen 325 mg tablet 650 mg PO Q6H PRN pain 05/14/25 05/14/25 History (Tylenol) Allergies Allergy/AdvReac Type Severity Reaction Status Date / Time No Known Allergies Allergy Verified 05/14/25 00:53 Vital Signs Vital Signs - 24 hr 05/13/25 19:07 05/13/25 21:12 05/13/25 22:29 Temperature 97.3 F L Pulse Rate 133 H 107 H 114 H Respiratory Rate 24 H 21 H 20 Blood Pressure 182/110 H 152/99 H 116/97 H Pulse Oximetry 97 94 97 Oxygen Delivery Room Air Exam 2 Narrative: Weight 295.4 kg BMI 96.2 Const: Other: No acute distress, super morbidly obese, appears stated age HENMT: Other: Mucous membranes are moist, no oral pharyngeal erythema, pupils are equal head is normocephalic atraumatic Neck: Other: Large neck circumference, unable to assess for JVD due to body habitus, no lymphadenopathy Resp: Other: Clear to auscultation bilaterally, no increased work of breathing Cardio: Other: Sinus tachycardia, 2+ bilateral radial pedal pulses GI: Other: Obese, soft, nontender : Other: Markedly enlarged scrotum due to edema, unable to visualize penis past the engorgement of the scrotum, scrotum are at least the size of a cantaloupe, no erythema, no drainage, yeasty odor to the groin without evidence of candidiasis in folds Skin: Other: Lipedema changes to bilateral lower extremities with large nodular areas of cristian colored skin but no increased warmth consistent with chronic inflammation but no acute infection Neuro: Other: Alert oriented x4, speech is clear, no facial asymmetry Extrem: Other: Lipedema changes as discussed above, moves all extremities equally, decreased range of motion of knees and hips due to body habitus, no reproducible pain Psych: Other: Mildly anxious otherwise pleasant and cooperative, judgment and insight intact H&P: Results Labs Labs: Laboratory Tests 05/13/25 20:59 05/13/25 20:59 05/13/25 05/13/25 20:59 20:59 WBC 9.4 RBC 4.37 L Hgb 10.2 L Hct 34.2 L MCV 78.3 L MCH 23.3 L MCHC 29.8 L RDW 16.7 H Plt Count 252 MPV 9.8 Immature Gran % (Auto) Not Reportable Neut % (Auto) Not Reportable Lymph % (Auto) Not Reportable [place] % (Auto) Not Reportable Eos % (Auto) Not Reportable Baso % (Auto) Not Reportable Lymph # (Auto) Not Reportable [place] # (Auto) Not Reportable Eos # (Auto) Not Reportable Baso # (Auto) Not Reportable Abs Immat Gran (auto) Not Reportable Absolute Neuts (auto) Not Reportable Absolute Nucleated RBC Not Reportable Total Counted 100 Neutrophils % (Manual) 78 H Band Neutrophils % 3 Lymphocytes % (Manual) 10.0 L Monocytes % (Manual) 8 Eosinophils % (Manual) 1 Nucleated RBC % Not Reportable Abs Neuts (Manual) 7.61 H Abs Lymphs (Manual) 0.94 L Abs Monocytes (Manual) 0.75 Absolute Eos (Manual) 0.09 Platelet Estimate Adequate Hypochromasia 1+ Anisocytosis 2+ Schistocytes None seen Sodium 131 L Potassium 4.3 Chloride 96 L Carbon Dioxide 24 Anion Gap 11 BUN 14 Creatinine 1.09 Estim Creat Clear Calc 203 Estimated GFR > 60 Glucose 115 H Calcium 9.0 Total Bilirubin 0.9 AST 32 ALT 38 Alkaline Phosphatase 69 NT-Pro-B Natriuret Pep < 20 Cancelled Total Protein 8.0 Albumin 4.1 Impressions Scrotum Ultrasound 05/13/25 21:12 IMPRESSION: Severe scrotal edema. Otherwise, normal testicular ultrasound. Chest X-Ray 05/13/25 22:01 IMPRESSION: No acute cardiopulmonary pathology. EKG: Sinus tachycardia rate 111 QTC 434 personally reviewed and interpreted radiologic interpretation pending All imaging and EKGs personally reviewed and interpreted. And unless stated otherwise agree with radiologic and cardiology interpretation. 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 The patient had urinated into a basin at bedside in the ER but the urine specimen was not sent to lab for analysis. The patient has not yet urinated since arrival to the medical floor. Is going to be difficult to obtain a clean-catch urine specimen due to the patient's retracted penis and scrotal edema. The patient refuses straight catheterization although I would not know how the staff would obtain catheterization given the patient's degree of edema. Orders have been given to try to in November scrotal sling and keep the scrotum elevated as the typical scrotal sling is are not likely diff if the patient. Will attempt diuretic therapy with caution in this patient to did not have evidence of heart failure and has edema more due to dependent process and who only has a congenital unilateral kidney. Will continue with Lasix 40 mg IV b.i.d. with careful monitoring of input and output and will repeat electrolyte panel and CBC in a.m.. Patient does have some mild elevation of glucose. Will check A1c in a.m. to rule out diabetes. Extensive amount of time was spent at bedside discussing dietary changes and management strategies to attempt to facilitate weight loss. The patient reports that he is quite active usually at least compared to any other people of his size. He seems motivated and eager to lose weight before he gets other secondary complications from is obesity. The patient's is snoring and is at high risk for obstructive sleep apnea. Will obtain ApneaLink for screening purposes. Patient has been admitted as observation status. MEDICAL DECISION MAKING NARRATIVE -Spoke with the ED provider in detail regarding patient's evaluation, workup and management -Patient seen and examined at bedside -Collaborated with patient's nurse at the bedside in detail and addressed all concerns -Labs, electrolytes, radiology, investigations and test results reviewed -ED/Consult/Nursing/Ancilliary notes on the chart reviewed and appreciated -Spoke with patient and his at bedside and all their questions and concerns were addressed. Quality VTE Prophylaxis VTE prophylaxis: pharmacologic ordered (Lovenox 40 mg subQ q.12 hours.) Hospitalist [facility] Advance Care Plan I have confirmed that the patient's Advanced Care Plan is present, code status is documented, or surrogate decision maker is listed in patient medical record.: Yes Medication Reconciliation I have utilized all available resources to obtain, update and review the patients current medications (includes all prescriptions, OTC, herbals, cannabis, and nutritional supplements).: Yes
[2025-05-14 02:00] VITALS: BP 131/52; PULSE 81; RESP 18; TEMP 36.6; O2SAT 100; BMI 92.7
[2025-05-14 05:29] LABS: Hematocrit 33.5 % (42.0-52.0); Hemoglobin 9.9 g/dL (14.0-18.0); Mean Corpuscular HGB Conc 29.6 g/dl (32-36); Mean Corpuscular Hemoglobin 23.7 pg (26-34); Mean Corpuscular Volume 80.3 fl (80-100); Platelet Count Result 261 k/mm3 (150-375); Red Blood Count 4.17 M/mm3 (4.6-6.20); White Blood Count 9.4 K/mm3 (4.5-10.0)
[2025-05-14 05:46] LABS: Anion Gap 11 mmol/L (4-12); Blood Urea Nitrogen 17 mg/dL (9-20); Calcium 8.9 mg/dL (8.4-10.2); Carbon Dioxide 24 mmol/L (22-30); Chloride 96 mmol/L (98-107); Estimated CRCL calculation 226 ml/min; Estimated Glomerular Filt Rate > 60; Glucose 115 mg/dL (65-110); Magnesium 2.1 mg/dL (1.6-2.3); Potassium 4.2 mmol/L (3.4-5.0); Sodium 131 mmol/L (137-145)
[2025-05-14 06:00] VITALS: BP 146/85; PULSE 104; RESP 18; TEMP 36.7; O2SAT 96
[2025-05-14 07:09] LABS: Add Urine Microscopic? YES; Appearance Urine Clear (Clear); Glucose Urine UA Negative (Negative); Leukocyte Esterase Ur Negative LEU/UL (Negative); Nitrate Urine Negative (Negative); Specific Grav Ur 1.017 (1.001-1.035)
[2025-05-14 07:59] LABS: CRP 17.2 mg/dL (<1.0)
[2025-05-14] MEDS: TRIAMCINOLONE ACET 0.1% CREAM 15 GM TUBE 1 APPLIC TOPICAL (09:05)
[2025-05-14] MEDS: FUROSEMIDE INJ 40 MG/4 ML VIAL IV PUSH ×2 (09:05→21:23)
[2025-05-14] MEDS: ENOXAPARIN 40 MG/0.4 ML SYRINGE SUB-Q ×2 (09:05→21:21)
[2025-05-14 10:50] LABS: Hemoglobin A1C 5.5 % (<5.7)
[2025-05-14 11:41] VITALS: O2SAT 98
[2025-05-14 13:30] VITALS: BMI 92.7
[2025-05-14 14:00] VITALS: BP 138/88; PULSE 104; RESP 12; TEMP 36.5; O2SAT 97
--- NOTE | 2025-05-14 16:31 | P.CONUR_ITS ---
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 Patient has been drinking electrolyte replacement drinks that have approx 2g sodium per drink. -stop electrolyte replacement drinks -use scrotal compression and elevation -diuresis per primary service. -cr, wbc's, and ua are all wnl. Urology Consult Note HPI Date Seen: 05/14/25 Requesting Physician: Natividad Borrero DO Primary Care Provider: POLITICAL ANTHROPOLOGIST PHYSICIAN Consult Narrative Narrative: Shorty Lind is a 30 year old male that presents to ED with severe scrotal edema. 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 The patient was initially evaluated in the ER on 05/10/2025 and returned to the ER on 05/13/2025 due to persistent scrotal swelling. The patient had been drinking supplement drinks that contained a large amount of sodium. He then noticed some increased swelling in his scrotum. The symptoms started about 2 weeks ago. Is accompanied by some increased lower extremity swelling. The swelling and gotten to the point that he could not close his legs comfortably to get in the to the car. He has tried elevating his legs and his scrotum and has not really had much in the way of improvement. He came to the ER on the and was given prescription for Lasix 20 mg daily after receiving 40 mg of IV Lasix x1. The Lasix and elevation of the scrotum still did not help with the edema. He is still having urine output a but had not noticed any increased urine output since starting the Lasix. He reports that he does intermittently have lower extremity edema at home but he is usually able to resolve his lower extremity edema with ambulation and he usually wears compression underwear. 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 They do not have any children. 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 He only drinks 1 alcoholic beverage a year. He denies any history of tobacco or illicit substance use. Code status: Full code Surrogate decision maker: Smoking status: Never smoker Alcohol intake: never Substance use: never Substance use type: does not use Do You Feel Safe in your Home?: Yes Lack of Transportation: No Lack of Food: Never True Current Housing: I Have Housing Concerned About Future Housing: No Difficulty Paying Gas/Electric Bills: No Difficulty Paying for Meds: No Currently Unemployed: No Education: Associate Degree Difficulty w/ Childcare or Family Care: No Spiritual care concerns: No Meds Home Medications and Allergies Home Medications ?Medication ?Instructions ?Recorded ?Confirmed ?Type furosemide 20 mg tablet (Lasix) 20 mg PO DAILY 05/13/25 05/13/25 History triamcinolone acetonide 0.1 % 1 applic topical DAILY 05/13/25 05/14/25 History topical cream acetaminophen 325 mg tablet 650 mg PO Q6H PRN pain 05/14/25 05/14/25 History (Tylenol) Allergies Allergy/AdvReac Type Severity Reaction Status Date / Time No Known Allergies Allergy Verified 05/14/25 00:53 Vital Signs Vital Signs - 24 hr 05/13/25 19:07 05/13/25 21:12 05/13/25 22:29 Temperature 97.3 F L Pulse Rate 133 H 107 H 114 H Respiratory Rate 24 H 21 H 20 Blood Pressure 182/110 H 152/99 H 116/97 H Pulse Oximetry 97 94 97 Oxygen Delivery Room Air 05/14/25 02:00 05/14/25 06:00 05/14/25 08:00 Temperature 97.8 F 98.1 F Pulse Rate 81 104 H Respiratory Rate 18 18 Blood Pressure 131/52 L 146/85 H Pulse Oximetry 100 96 Oxygen Delivery Room Air 05/14/25 11:41 05/14/25 14:00 Temperature 97.7 F Pulse Rate 104 H Respiratory Rate 12 Blood Pressure 138/88 Pulse Oximetry 98 97 Oxygen Delivery Room Air Exam 2 Narrative: morbid obesity Const: General: comfortable and no acute distress Eyes: General: appearance normal, both eyes and all related structures Resp: Effort & Inspection: normal respiratory effort : Other: buried penis due to body habitus and scrotal edema. severe scrotal edema noted. Urinary Catheter: Urinary Catheter: urine clear Neuro: Speech: normal speech Psych: Affect: normal affect Results Labs 05/14/25 05:21 05/14/25 05:21 Labs: Short CBC 05/13/25 05/14/25 Range/Units 20:59 05:21 WBC 9.4 9.4 (4.5-10.0) K/mm3 Hgb 10.2 L 9.9 L (14.0-18.0) g/dL Hct 34.2 L 33.5 L (42.0-52.0) % Plt Count 252 261 (150-375) k/mm3 [facility] 05/13/25 05/14/25 20:59 05:21 Sodium 131 L 131 L Potassium 4.3 4.2 Chloride 96 L 96 L Carbon Dioxide 24 24 BUN 14 17 Creatinine 1.09 1.04 Glucose 115 H 115 H Calcium 9.0 8.9 Liver Function 05/13/25 Range/Units 20:59 Total Bilirubin 0.9 (0.2-1.3) mg/dL AST 32 (17-59) U/L ALT 38 (6-50) U/L Alkaline Phosphatase 69 (38-126) U/L Albumin 4.1 (3.5-5.1) g/dL Urine 05/14/25 Range/Units 06:33 Urine Color Yellow (Yellow) Urine Appearance Clear (Clear) Urine pH 5.0 (5.0-9.0) Ur Specific [place] 1.017 (1.001-1.035) Urine Protein Trace (Negative) mg/dL Urine Glucose (UA) Negative (Negative) mg/dL
[2025-05-14 21:53] VITALS: BP 125/80; PULSE 108; RESP 18; TEMP 36.8; O2SAT 96
[2025-05-15 05:37] LABS: Hematocrit 33.5 % (42.0-52.0); Hemoglobin 9.8 g/dL (14.0-18.0); Immature Granulocyte Percent A 1.4 % (0-0.5); Lymphocytes Absolute Auto 1.16 K/mm3 (0.9-3.2); Mean Corpuscular HGB Conc 29.3 g/dl (32-36); Mean Corpuscular Hemoglobin 23.6 pg (26-34); Mean Corpuscular Volume 80.5 fl (80-100); Nucleated Red Blood Cells Absolute Auto 0.000 K/mm3 (0.0-0.012); Nucleated Red Blood Cells Perc 0.0 % (0.0-0.2); Platelet Count Result 231 k/mm3 (150-375); Red Blood Count 4.16 M/mm3 (4.6-6.20); White Blood Count 9.4 K/mm3 (4.5-10.0)
[2025-05-15 05:44] LABS: Band Neutrophils Percent 0 % (0-6); Hypochromasia 1+; Ovalocytes 1+; Schistocytes None Seen
[2025-05-15 05:59] LABS: Alanine Aminotransferase 32 U/L (6-50); Albumin Level 3.9 g/dL (3.5-5.1); Alkaline Phosphatase 62 U/L (38-126); Anion Gap 12 mmol/L (4-12); Aspartate Amino Transferase 30 U/L (17-59); Bilirubin,Total 0.8 mg/dL (0.2-1.3); Blood Urea Nitrogen 18 mg/dL (9-20); Calcium 9.0 mg/dL (8.4-10.2); Carbon Dioxide 25 mmol/L (22-30); Chloride 96 mmol/L (98-107); Estimated CRCL calculation 214 ml/min; Estimated Glomerular Filt Rate > 60; Glucose 109 mg/dL (65-110); Magnesium 2.2 mg/dL (1.6-2.3); Potassium 4.1 mmol/L (3.4-5.0); Sodium 133 mmol/L (137-145); Total Protein 7.7 g/dL (6.3-8.2)
[2025-05-15 06:00] VITALS: BP 134/94; PULSE 115; RESP 16; TEMP 36.1; O2SAT 94
[2025-05-15] MEDS: FUROSEMIDE INJ 40 MG/4 ML VIAL IV PUSH ×2 (09:27→22:13)
[2025-05-15] MEDS: KETOROLAC 30 MG/ML VIAL (*BKC) IV PUSH ×3 (09:28→22:10)
[2025-05-15] MEDS: TRIAMCINOLONE ACET 0.1% CREAM 15 GM TUBE 1 APPLIC TOPICAL (09:30)
[2025-05-15] MEDS: ENOXAPARIN 40 MG/0.4 ML SYRINGE SUB-Q ×2 (09:30→22:15)
--- NOTE | 2025-05-15 10:00 | P.PNUR_ITS ---
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 Patient has been drinking electrolyte replacement drinks that have approx 2g sodium per drink. -stop electrolyte replacement drinks -use scrotal compression and elevation -continue diuresis per primary service. 22lbs down from yesterday to today. -cr and wbc's remain wnl. -we will sign off. Subjective Subjective Date/Time Seen: 05/15/25 10:00 Interval history: no acute events overnight. UOP appropriate. patient is diuresing well. He is down 22lbs today from yesterday. Review of Systems Review of Systems: All systems reviewed & are unremarkable except as noted in HPI and below Exam Narrative: morbid obesity Const: General: comfortable and no acute distress Eyes: General: appearance normal, both eyes and all related structures Resp: Effort & Inspection: normal respiratory effort : Other: buried penis due to body habitus and scrotal edema. severe scrotal edema still present with some improvement. Neuro: Speech: normal speech Psych: Affect: normal affect Objective Data Vital Signs Vital Signs: Vital Signs - 24 hr 05/14/25 11:41 05/14/25 14:00 05/14/25 20:00 Temperature 97.7 F Pulse Rate 104 H Respiratory Rate 12 Blood Pressure 138/88 Pulse Oximetry 98 97 Oxygen Delivery Room Air Room Air 05/14/25 21:53 05/15/25 06:00 Temperature 98.2 F 97.0 F L Pulse Rate 108 H 115 H Respiratory Rate 18 16 Blood Pressure 125/80 134/94 H Pulse Oximetry 96 94 Oxygen Delivery Intake/Output Intake/Output: Intake & Output 05/12/25 05/13/25 05/14/25 05/15/25 23:59 23:59 23:59 23:59 Intake Total 1520 300 Output Total 1475 1000 Balance 45 -700 Meds/Results Medications: Active Medications Generic Name Dose Route Start Last Admin Trade Name Yogi PRN Reason Stop Dose Admin Acetaminophen 1,000 mg 05/14/25 00:29 Acetaminophen 500 Mg Tablet PO Q6H PRN Mild Pain (1-3) or Fever Enoxaparin Sodium 40 mg 05/14/25 09:00 05/15/25 09:30 Enoxaparin 40 Mg/0.4 Ml Syringe SUB-Q 40 mg Q12HR CATINA Administration Furosemide 40 mg 05/14/25 09:00 05/15/25 09:27 Furosemide Inj 40 Mg/4 Ml Vial IV PUSH 40 mg Q12HR CATINA Administration Ketorolac Tromethamine 30 mg 05/14/25 00:29 05/15/25 09:28 Ketorolac 30 Mg/Ml Vial (*Bkc) IV PUSH 30 mg Q6H PRN Administration Pain Rated 4-10 Triamcinolone Acetonide 1 applic 05/14/25 09:00 05/15/25 09:30 Triamcinolone Acet 0.1% Cream 15 Gm Tube TOPICAL 1 applic DAILY CATINA Administration Radiology Results: ITS Impressions Scrotum Ultrasound 05/13/25 21:12 IMPRESSION: Severe scrotal edema. Otherwise, normal testicular ultrasound. Chest X-Ray 05/13/25 22:01 IMPRESSION: No acute cardiopulmonary pathology. Labs Labs: Laboratory Results - last 24 hr 05/14/25 05/15/25 05:21 05:27 WBC 9.4 RBC 4.16 L Hgb 9.8 L Hct 33.5 L MCV 80.5 MCH 23.6 L MCHC 29.3 L RDW 17.2 H Plt Count 231 MPV 10.2 Immature Gran % (Auto) 1.4 H Neut % (Auto) 73.6 H Lymph % (Auto) 12.4 L [place] % (Auto) 9.4 H Eos % (Auto) 2.5 Baso % (Auto) 0.7 Lymph # (Auto) 1.16 [place] # (Auto) 0.9 H Eos # (Auto) 0.2 Baso # (Auto) 0.1 Abs Immat Gran (auto) 0.13 H Absolute Neuts (auto) 6.9 H Absolute Nucleated RBC 0.000 Band Neutrophils % 0 Nucleated RBC % 0.0 Platelet Estimate Adequate Hypochromasia 1+ Ovalocytes 1+ Schistocytes None seen Sodium 133 L Potassium 4.1 Chloride 96 L Carbon Dioxide 25 Anion Gap 12 BUN 18 Creatinine 1.10 Estim Creat Clear Calc 214 Estimated GFR > 60 Glucose 109 Hemoglobin A1c 5.5 Calcium 9.0 Magnesium 2.2 Total Bilirubin 0.8 AST 30 ALT 32 Alkaline Phosphatase 62 Total Protein 7.7 Albumin 3.9
--- NOTE | 2025-05-15 10:17 | PC.NURSE ---
Patient and patient's family educated on proper use of bed and safety precautions, but declined. Patient is pleasant, but finds best relief with bed up higher. RN told patient and patient's family I would have to chart against it.
--- NOTE | 2025-05-15 13:24 | PM.IMPN ---
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: Code(s): I89.0 - Lymphedema, not elsewhere classified; R60.9 - Edema, unspecified Status: Acute (4) Edema of scrotum: Code(s): N50.89 - Other specified disorders of the male genital organs Status: Acute (5) Acquired buried penis: Code(s): N48.83 - Acquired buried penis Status: Acute Plan Diuresis appears to be working slightly. Scrotum still too big for the patient to ambulate. Lower extremity swelling is slightly improved. Continue daily weights and intake/output recording/monitoring. Urology still following. Patient is voiding without issue. Continue Lasix 40 mg IV b.i.d. and give additional dose 20 mg IV x1 now. Patient declined ApneaLink. He wants to follow-up in the outpatient setting along with bariatric surgery. Lovenox. Saline lock IV. Full code. Subjective Date/time seen: 05/15/25 13:24 Interval history: No major acute overnight events. Patient and family at bedside satisfied the patient has lost 15 lb. The patient also reports decreased swelling in both legs right greater than left. Unsure that he has had any decrease in swelling of his scrotum although. Still no pain no itching no lesions no discharge. No chest pain no shortness of breath. Review of Systems Review of Systems: All systems reviewed & are unremarkable except as noted in HPI and below (Subjective) Exam Const: General: comfortable and no acute distress Other: A&O x3 HENMT: Mouth: Yes moist mucous membranes Eyes: Pupils: Equal, round and reactive pupils present Neck: Neck: supple Resp: Effort & Inspection: normal respiratory effort Auscultation: clear to auscultation bilaterally Cardio: Rate: regular rate Rhythm: regular rhythm GI: GI Palp: Yes Soft to palpation Extrem: General: edema Other: 1+ left lower extremity, scrotal edema is persistent unchanged. No lesions, no drainage. Slight erythema. Not warm. No tenderness to palpation Objective Data Vital Signs Vital Signs: Vital Signs - 24 hr 05/14/25 14:00 05/14/25 20:00 05/14/25 21:53 Temperature 97.7 F 98.2 F Pulse Rate 104 H 108 H Respiratory Rate 12 18 Blood Pressure 138/88 125/80 Pulse Oximetry 97 96 Oxygen Delivery Room Air 05/15/25 06:00 05/15/25 08:00 Temperature 97.0 F L Pulse Rate 115 H Respiratory Rate 16 Blood Pressure 134/94 H Pulse Oximetry 94 Oxygen Delivery Room Air Intake/Output Intake/Output: Intake & Output 05/12/25 05/13/25 05/14/25 05/15/25 23:59 23:59 23:59 23:59 Intake Total 1520 780 Output Total 1475 1450 Balance 45 -670 Meds/Results Medications: Active Medications Generic Name Dose Route Start Last Admin Trade Name Freq PRN Reason Stop Dose Admin Acetaminophen 1,000 mg 05/14/25 00:29 Acetaminophen 500 Mg Tablet PO Q6H PRN Mild Pain (1-3) or Fever Enoxaparin Sodium 40 mg 05/14/25 09:00 05/15/25 09:30 Enoxaparin 40 Mg/0.4 Ml Syringe SUB-Q 40 mg Q12HR CATINA Administration Furosemide 40 mg 05/14/25 09:00 05/15/25 09:27 Furosemide Inj 40 Mg/4 Ml Vial IV PUSH 40 mg Q12HR CATINA Administration Furosemide 20 mg 05/15/25 13:23 Furosemide Inj 40 Mg/4 Ml Vial IV PUSH 05/15/25 13:24 ONCE ONE Ketorolac Tromethamine 30 mg 05/14/25 00:29 05/15/25 09:28 Ketorolac 30 Mg/Ml Vial (*Bkc) IV PUSH 30 mg Q6H PRN Administration Pain Rated 4-10 Triamcinolone Acetonide 1 applic 05/14/25 09:00 05/15/25 09:30 Triamcinolone Acet 0.1% Cream 15 Gm Tube TOPICAL 1 applic DAILY CATINA Administration Radiology Results: ITS Impressions Scrotum Ultrasound 05/13/25 21:12 IMPRESSION: Severe scrotal edema. Otherwise, normal testicular ultrasound. Chest X-Ray 05/13/25 22:01 IMPRESSION: No acute cardiopulmonary pathology. Labs Labs: Laboratory Results - last 24 hr 05/15/25 05:27 WBC 9.4 RBC 4.16 L Hgb 9.8 L Hct 33.5 L MCV 80.5 MCH 23.6 L MCHC 29.3 L RDW 17.2 H Plt Count 231 MPV 10.2 Immature Gran % (Auto) 1.4 H Neut % (Auto) 73.6 H Lymph % (Auto) 12.[address] [place] % (Auto) 9.4 H Eos % (Auto) 2.5 Baso % (Auto) 0.7 Lymph # (Auto) 1.16 [place] # (Auto) 0.9 H Eos # (Auto) 0.2 Baso # (Auto) 0.1 Abs Immat Gran (auto) 0.13 H Absolute Neuts (auto) 6.9 H Absolute Nucleated RBC 0.000 Band Neutrophils % 0 Nucleated RBC % 0.0 Platelet Estimate Adequate Hypochromasia 1+ Ovalocytes 1+ Schistocytes None seen Sodium 133 L Potassium 4.1 Chloride 96 L Carbon Dioxide 25 Anion Gap 12 BUN 18 Creatinine 1.10 Estim Creat Clear Calc 214 Estimated GFR > 60 Glucose 109 Calcium 9.0 Magnesium 2.2 Total Bilirubin 0.8 AST 30 ALT 32 Alkaline Phosphatase 62 Total Protein 7.7 Albumin 3.9
[2025-05-15 14:00] VITALS: BP 108/90; PULSE 103; RESP 20; TEMP 36.5; O2SAT 99
[2025-05-15] MEDS: FUROSEMIDE INJ 40 MG/4 ML VIAL 20 MG IV PUSH (14:38)
[2025-05-15 22:00] VITALS: BP 142/74; PULSE 102; RESP 18; TEMP 36.1; O2SAT 97
[2025-05-16 06:00] VITALS: BP 135/84; PULSE 115; RESP 16; TEMP 36.8; O2SAT 95
[2025-05-16 07:02] LABS: Hematocrit 33.1 % (42.0-52.0); Hemoglobin 9.7 g/dL (14.0-18.0); Mean Corpuscular HGB Conc 29.3 g/dl (32-36); Mean Corpuscular Hemoglobin 23.7 pg (26-34); Mean Corpuscular Volume 80.7 fl (80-100); Platelet Count Result 242 k/mm3 (150-375); Red Blood Count 4.10 M/mm3 (4.6-6.20); White Blood Count 10.3 K/mm3 (4.5-10.0)
[2025-05-16 07:27] LABS: Anion Gap 11 mmol/L (4-12); Blood Urea Nitrogen 20 mg/dL (9-20); Calcium 8.8 mg/dL (8.4-10.2); Carbon Dioxide 26 mmol/L (22-30); Chloride 94 mmol/L (98-107); Estimated CRCL calculation 204 ml/min; Estimated Glomerular Filt Rate > 60; Glucose 100 mg/dL (65-110); Magnesium 2.3 mg/dL (1.6-2.3); Potassium 3.9 mmol/L (3.4-5.0); Sodium 131 mmol/L (137-145)
[2025-05-16] MEDS: KETOROLAC 30 MG/ML VIAL (*BKC) IV PUSH (10:06)
[2025-05-16] MEDS: ENOXAPARIN 40 MG/0.4 ML SYRINGE SUB-Q (10:06)
[2025-05-16] MEDS: FUROSEMIDE INJ 40 MG/4 ML VIAL IV PUSH ×3 (10:06→22:59)
[2025-05-16] MEDS: TRIAMCINOLONE ACET 0.1% CREAM 15 GM TUBE 1 APPLIC TOPICAL (10:07)
--- NOTE | 2025-05-16 13:40 | PC.NURSE ---
RN called Urologist head concierge, Dr. Madrigal, around 1100 to inform him that patient was signed off from Urology yesterday because lab values were ok and patient was diuresing fine. Today patient is retaining fluid and can no longer fully empty his bladder. RN told Urologist that patient was also experiencing anxiety about catheter placement because his penis is buried in scrotum. RN asked for Urology to place a catheter. Urologist seemed opposed to the idea and said He would come to see patient eventually today. Patient tried to urinate again with no luck. RN bladder scanned patient and saw patient was retaining at least 487 mL. RN called MD Castro and they were in agreeing he needs a catheter and also needs to be placed by urology. MD Castro said Give Urologist an hour to get here (1300 to 1400) and if he does not show, he will call him himself.
[2025-05-16 14:00] VITALS: BP 135/82; PULSE 101; RESP 20; TEMP 36.9; O2SAT 98
--- NOTE | 2025-05-16 14:04 | P.PNIM_ITS ---
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: Code(s): I89.0 - Lymphedema, not elsewhere classified; R60.9 - Edema, unspecified Status: Acute (4) Edema of scrotum: Code(s): N50.89 - Other specified disorders of the male genital organs Status: Acute (5) Acquired buried penis: Code(s): N48.83 - Acquired buried penis Status: Acute Plan Diuresis appears to be working slightly. Scrotum still too big for the patient to ambulate. Lower extremity swelling is slightly improved. Continue daily weights and intake/output recording/monitoring. Urology still following. Patient is voiding without issue. Continue Lasix 40 mg IV b.i.d. and give additional dose 20 mg IV x1 now. Patient declined ApneaLink. He wants to follow-up in the outpatient setting along with bariatric surgery. 05/16/2025: 661 lb today, same as yesterday. Appears to have diuresed better since last night. However, Postvoid residual 400 cc plus. Urology reconsulted for assistance in placing Moses catheter. Will hold off on giving additional Lasix for now considering the urinary retention. Left lower extremity edema worse. Ordered venous Dopplers. Lovenox. Saline lock IV. Full code. Subjective Date/time seen: 05/16/25 14:04 Interval history: No major acute overnight events. Weight has stayed stagnant at 661. Patient believes fully will help him now. Bladder scan postvoid with 400 cc plus. Left lower extremity edema, right lower extremity no edema. Review of Systems Review of Systems: All systems reviewed & are unremarkable except as noted in HPI and below (Subjective) Exam Const: General: comfortable and no acute distress Other: A&O x3 HENMT: Mouth: Yes moist mucous membranes Eyes: Pupils: Equal, round and reactive pupils present Neck: Neck: supple Resp: Effort & Inspection: normal respiratory effort Auscultation: clear to auscultation bilaterally Cardio: Rate: regular rate Rhythm: regular rhythm GI: GI Palp: Yes Soft to palpation Extrem: General: edema Other: 2+ left lower extremity, scrotal edema i s slightly improved No lesions, no drainage. Slight erythema. Not excessive warm. No tenderness to palpation Objective Data Vital Signs Vital Signs: Vital Signs - 24 hr 05/15/25 22:00 05/15/25 22:10 05/16/25 06:00 Temperature 97.0 F L 98.3 F Pulse Rate 102 H 115 H Respiratory Rate 18 16 Blood Pressure 142/74 H 135/84 Pulse Oximetry 97 95 Oxygen Delivery Room Air 05/16/25 12:55 Temperature Pulse Rate Respiratory Rate Blood Pressure Pulse Oximetry Oxygen Delivery Room Air Intake/Output Intake/Output: Intake & Output 05/13/25 05/14/25 05/15/25 05/16/25 23:59 23:59 23:59 23:59 Intake Total 1520 3240 300 Output Total 1475 1450 1500 Balance 45 1790 -1200 Meds/Results Medications: Active Medications Generic Name Dose Route Start Last Admin Trade Name Freq PRN Reason Stop Dose Admin Acetaminophen 1,000 mg 05/14/25 00:29 Acetaminophen 500 Mg Tablet PO Q6H PRN Mild Pain (1-3) or Fever Enoxaparin Sodium 40 mg 05/14/25 09:00 05/16/25 10:06 Enoxaparin 40 Mg/0.4 Ml Syringe SUB-Q 40 mg Q12HR CATINA Administration Furosemide 40 mg 05/14/25 09:00 05/16/25 10:06 Furosemide Inj 40 Mg/4 Ml Vial IV PUSH 40 mg Q12HR CATINA Administration Ketorolac Tromethamine 30 mg 05/14/25 00:29 05/16/25 10:06 Ketorolac 30 Mg/Ml Vial (*Bkc) IV PUSH 30 mg Q6H PRN Administration Pain Rated 4-10 Triamcinolone Acetonide 1 applic 05/14/25 09:00 05/16/25 10:07 Triamcinolone Acet 0.1% Cream 15 Gm Tube TOPICAL 1 applic DAILY CATINA Administration Radiology Results: ITS Impressions Scrotum Ultrasound 05/13/25 21:12 IMPRESSION: Severe scrotal edema. Otherwise, normal testicular ultrasound. Chest X-Ray 05/13/25 22:01 IMPRESSION: No acute cardiopulmonary pathology. Labs Labs: Laboratory Results - last 24 hr 05/16/25 05:34 WBC 10.3 H RBC 4.10 L Hgb 9.7 L Hct 33.1 L MCV 80.7 MCH 23.7 L MCHC 29.3 L RDW 17.1 H Plt Count 242 MPV 10.6 H Sodium 131 L Potassium 3.9 Chloride 94 L Carbon Dioxide 26 Anion Gap 11 BUN 20 Creatinine 1.13 Estim Creat Clear Calc 204 Estimated GFR > 60 Glucose 100 Calcium 8.8 Magnesium 2.3
--- NOTE | 2025-05-16 14:31 | PC.NURSE ---
MD Castro called ER physician to come up to try a catheter on patient, but ER physician could not perform catheter. ER physician said Urology HAS to place the catheter probably by operation with wires. Patient and family are not happy with this process as this has now been going on for nearly 4 hours. RN and will continue to call the Urologist environmental health technician, Dr. Madrigal.
--- NOTE | 2025-05-16 17:18 | WPDUROPN2 ---
Progress Note: A&P Assessment and Plan (1) Edema of scrotum: Code(s): N50.89 - Other specified disorders of the male genital organs Status: Acute Assessment and Plan: Pt is voiding without difficulty, 100% of bladder scanned volume, no need for cath placement at this time. Time Spent With Patient Time: 15min Subjective Subjective Date/Time Seen: 05/16/25 17:18 Interval history: Pt is comfortable and voiding. Pt is voiding at 100% efficiency, voiding the entire bladder scanned amount. Review of Systems Respiratory: Respiratory: Reports no additional respiratory complaints Genitourinary: Genitourinary: Reports scrotal swelling Exam GI: Inspection: Abdominal wall edema : Male General Exam: Yes edema Penis: Yes edematous Scrotum: edematous Objective Data Vital Signs Vital Signs: Vital Signs - 24 hr 05/15/25 22:00 05/15/25 22:10 05/16/25 06:00 Temperature 36.1 C L 36.8 C Pulse Rate 102 H 115 H Respiratory Rate 18 16 Blood Pressure 142/74 H 135/84 Pulse Oximetry 97 95 Oxygen Delivery Room Air 05/16/25 12:55 05/16/25 14:00 Temperature 36.9 C Pulse Rate 101 H Respiratory Rate 20 Blood Pressure 135/82 Pulse Oximetry 98 Oxygen Delivery Room Air Intake/Output Intake/Output: Intake & Output 05/13/25 05/14/25 05/15/25 05/16/25 23:59 23:59 23:59 23:59 Intake Total 1520 3240 300 Output Total 1475 1450 2025 Balance 45 1790 -1725 Meds/Results Medications: Active Medications Generic Name Dose Route Start Last Admin Trade Name Freq PRN Reason Stop Dose Admin Acetaminophen 1,000 mg 05/14/25 00:29 Acetaminophen 500 Mg Tablet PO Q6H PRN Mild Pain (1-3) or Fever Enoxaparin Sodium 40 mg 05/14/25 09:00 05/16/25 10:06 Enoxaparin 40 Mg/0.4 Ml Syringe SUB-Q 40 mg Q12HR CATINA Administration Furosemide 40 mg 05/14/25 09:00 05/16/25 10:06 Furosemide Inj 40 Mg/4 Ml Vial IV PUSH 40 mg Q12HR CATINA Administration Ketorolac Tromethamine 30 mg 05/14/25 00:29 05/16/25 10:06 Ketorolac 30 Mg/Ml Vial (*Bkc) IV PUSH 30 mg Q6H PRN Administration Pain Rated 4-10 Triamcinolone Acetonide 1 applic 05/14/25 09:00 05/16/25 10:07 Triamcinolone Acet 0.1% Cream 15 Gm Tube TOPICAL 1 applic DAILY CATINA Administration Radiology Results: ITS Impressions Scrotum Ultrasound 05/13/25 21:12 IMPRESSION: Severe scrotal edema. Otherwise, normal testicular ultrasound. Chest X-Ray 05/13/25 22:01 IMPRESSION: No acute cardiopulmonary pathology. Labs Labs: Laboratory Results - last 24 hr 05/16/25 05:34 WBC 10.3 H RBC 4.10 L Hgb 9.7 L Hct 33.1 L MCV 80.7 MCH 23.7 L MCHC 29.3 L RDW 17.1 H Plt Count 242 MPV 10.6 H Sodium 131 L Potassium 3.9 Chloride 94 L Carbon Dioxide 26 Anion Gap 11 BUN 20 Creatinine 1.13 Estim Creat Clear Calc 204 Estimated GFR > 60 Glucose 100 Calcium 8.8 Magnesium 2.3
[2025-05-16 18:40] LABS: INR 1.2; Partial Thromboplastin Time 25.8 Seconds (22.3-36.8); Prothrombin Time 14.8 Seconds (11.1-14.7)
[2025-05-16] MEDS: HEPARIN SOD/D5W 100 UNITS/ML 25,000 UNITS/250 ML BAG 15 UNITS IV CONT (18:58)
[2025-05-16 20:00] VITALS: O2SAT 98
[2025-05-16 22:00] VITALS: BP 132/75; PULSE 106; RESP 20; TEMP 36.8; O2SAT 100
[2025-05-17 01:11] LABS: Partial Thromboplastin Time 26.9 Seconds (22.3-36.8)
[2025-05-17] MEDS: ACETAMINOPHEN 500 MG TABLET 1000 MG PO ×4 (04:57→23:09)
[2025-05-17 06:00] VITALS: BP 148/78; PULSE 104; RESP 18; TEMP 36.4; O2SAT 96
[2025-05-17 07:51] LABS: Hematocrit 32.2 % (42.0-52.0); Hemoglobin 9.6 g/dL (14.0-18.0); Immature Granulocyte Percent A 1.8 % (0-0.5); Lymphocytes Absolute Auto 1.22 K/mm3 (0.9-3.2); Mean Corpuscular HGB Conc 29.8 g/dl (32-36); Mean Corpuscular Hemoglobin 23.7 pg (26-34); Mean Corpuscular Volume 79.5 fl (80-100); Nucleated Red Blood Cells Absolute Auto 0.000 K/mm3 (0.0-0.012); Nucleated Red Blood Cells Perc 0.0 % (0.0-0.2); Platelet Count Result 238 k/mm3 (150-375); Red Blood Count 4.05 M/mm3 (4.6-6.20); White Blood Count 9.4 K/mm3 (4.5-10.0)
[2025-05-17 08:06] LABS: Partial Thromboplastin Time 26.3 Seconds (22.3-36.8)
[2025-05-17 08:35] LABS: Anion Gap 10 mmol/L (4-12); Blood Urea Nitrogen 19 mg/dL (9-20); Calcium 8.7 mg/dL (8.4-10.2); Carbon Dioxide 28 mmol/L (22-30); Chloride 96 mmol/L (98-107); Estimated CRCL calculation 202 ml/min; Estimated Glomerular Filt Rate > 60; Glucose 99 mg/dL (65-110); Magnesium 2.1 mg/dL (1.6-2.3); Potassium 3.9 mmol/L (3.4-5.0); Sodium 134 mmol/L (137-145)
[2025-05-17 08:57] LABS: Hypochromasia 1+; Ovalocytes 1+; Schistocytes None Seen
[2025-05-17] MEDS: HEPARIN SOD/D5W 100 UNITS/ML 25,000 UNITS/250 ML BAG 29 UNITS IV CONT (09:19)
[2025-05-17] MEDS: FUROSEMIDE INJ 40 MG/4 ML VIAL IV PUSH (09:20)
[2025-05-17] MEDS: TRIAMCINOLONE ACET 0.1% CREAM 15 GM TUBE 1 APPLIC TOPICAL (09:39)
--- NOTE | 2025-05-17 11:45 | P.PNIM_ITS ---
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 Scrotum still too big for the patient to ambulate. Lower extremity swelling is slightly improved. Continue daily weights and intake/output recording/monitoring. Urology still following. Patient is voiding without issue. Continue Lasix 40 mg IV b.i.d. and give additional dose 20 mg IV x1 now. Patient declined ApneaLink. He wants to fo llow-up in the outpatient setting along with bariatric surgery. 05/16/2025: 661 lb today, same as yesterday. Appears to have diuresed better since last night. However, Postvoid residual 400 cc plus. Urology reconsulted for assistance in placing Moses catheter. Will hold off on giving additional Lasix for now considering the urinary retention. Left lower extremity edema worse. Ordered venous Dopplers. 05/17/2025: Patient has lost a bit of weight. He reports good urine output. On 05/16/2025 patient has urinary retention, unable to urinate with greater than 400 cc in a bladder scan. After many hours he was able to urinate. Urology did evaluate the patient and did not feel a Moses catheter necessary given he did urinate. No issues since then. Lower extremity Doppler ultrasound demonstrates deep venous thrombosis of the common femoral, proximal superficial femoral, distal superficial femoral. This may very well be the culprit to his left lower extremity swelling and has scr otal swelling. Is slightly improved. Last Lasix dose 05/17/2025 at 9:00 a.m.. Anticipate discharge on 05/18/2025 in switching to oral anticoagulant. Advised the patient to begin ambulation today. Heparin GTT Saline lock IV. Full code. Subjective Date/time seen: 05/17/25 11:45 Interval history: Patient seen and examined at bedside. Mother present she has been every day. Patient has urinated 4:00 a.m. 700 cc. He has not walked yet. No bleeding events. Review of Systems Review of Systems: All systems reviewed & are unremarkable except as noted in HPI and below (Subjective) Exam Const: General: comfortable and no acute distress Other: A&O x3 HENMT: Mouth: Yes moist mucous membranes Eyes: Pupils: Equal, round and reactive pupils present Neck: Neck: supple Resp: Effort & Inspection: normal respiratory effort Auscultation: clear to auscultation bilaterally Cardio: Rate: regular rate Rhythm: regular rhythm GI: GI Palp: Yes Soft to palpation Extrem: General: edema Other: Left lower extremity and soft tissue of the inguinal area with swelling however improved from 05/16/2025. Scrotal edema is slightly improved. Right lower extremity no pitting edema. Objective Data Vital Signs Vital Signs: Vital Signs - 24 hr 05/16/25 12:55 05/16/25 14:00 05/16/25 20:00 Temperature 98.4 F Pulse Rate 101 H Respiratory Rate 20 Blood Pressure 135/82 Pulse Oximetry 98 98 Oxygen Delivery Room Air Room Air 05/16/25 21:50 05/16/25 22:00 05/17/25 06:00 Temperature 98.2 F 97.6 F Pulse Rate 106 H 104 H Respiratory Rate 20 18 Blood Pressure 132/75 148/78 H Pulse Oximetry 100 96 Oxygen Delivery Room Air Intake/Output Intake/Output: Intake & Output 05/14/25 05/15/25 05/16/25 05/17/25 23:59 23:59 23:59 23:59 Intake Total 1520 3240 1630 250.0 Output Total 1475 1450 2825 700 Balance 45 1790 -1195 -450.0 Meds/Results Medications: Active Medications Generic Name Dose Route Start Last Admin Trade Name Freq PRN Reason Stop Dose Admin Acetaminophen 1,000 mg 05/14/25 00:29 05/17/25 10:40 Acetaminophen 500 Mg Tablet PO 1,000 mg Q6H PRN Administration Mild Pain (1-3) or Fever Heparin Sodium (Porcine) 10,000 units 05/16/25 17:37 05/17/25 09:38 Heparin Sodium 5,000 Units/Ml Vial IV PUSH 10,000 units PRN PRN Administration aPTT less than 55 seconds Heparin Sodium (Porcine) 6,500 units 05/16/25 17:37 Heparin Sodium 5,000 Units/Ml Vial IV PUSH PRN PRN aPTT 55 - 70 seconds Heparin Sodium/Dextrose 25,000 units in 250 mls @ 29 mls/hr 05/16/25 17:40 05/17/25 09:37 Heparin Sodium/D5w 100 Units/Ml IV CONT Not Given .Q8H38M CATINA Protocol 2,900 UNITS/HR Triamcinolone Acetonide 1 applic 05/14/25 09:00 05/17/25 09:39 Triamcinolone Acet 0.1% Cream 15 Gm Tube TOPICAL 1 applic DAILY CATINA Administration Radiology Results: ITS Impressions Scrotum Ultrasound 05/13/25 21:12 IMPRESSION: Severe scrotal edema. Otherwise, normal testicular ultrasound. Chest X-Ray 05/13/25 22:01 IMPRESSION: No acute cardiopulmonary pathology. Venous Doppler Study 05/16/25 17:28 IMPRESSION: DVT in the left lower extremity veins. Other appearances are unremarkable. Physician: Marie Salazar MD Was notified with the result of the patient at 5:55 PM on May 16, 2025 Labs Labs: Laboratory Results - last 24 hr 05/16/25 05/17/25 05/17/25 18:08 00:51 07:37 WBC 9.4 RBC 4.05 L Hgb 9.6 L Hct 32.2 L MCV 79.5 L MCH 23.7 L MCHC 29.8 L RDW 16.9 H Plt Count 238 MPV 9.9 Immature Gran % (Auto) 1.8 H Neut % (Auto) 73.5 H Lymph % (Auto) 13.0 L [place] % (Auto) 8.0 Eos % (Auto) 3.2 Baso % (Auto) 0.5 Lymph # (Auto) 1.22 [place] # (Auto) 0.8 H Eos # (Auto) 0.3 Baso # (Auto) 0.1 Abs Immat Gran (auto) 0.17 H Absolute Neuts (auto) 6.9 H Absolute Nucleated RBC 0.000 Band Neutrophils % Not Reportable Nucleated RBC % 0.0 Platelet Estimate Adequate Hypochromasia 1+ Ovalocytes 1+ Schistocytes None seen PT 14.8 H INR 1.2 APTT 25.8 26.9 26.3 Sodium 134 L Potassium 3.9 Chloride 96 L Carbon Dioxide 28 Anion Gap 10 BUN 19 Creatinine 1.14 Estim Creat Clear Calc 202 Estimated GFR > 60 Glucose 99 Calcium 8.7 Magnesium 2.1
[2025-05-17 14:00] VITALS: BP 144/87; PULSE 102; RESP 20; TEMP 36.8; O2SAT 95
[2025-05-17 15:14] LABS: Partial Thromboplastin Time 39.3 Seconds (22.3-36.8)
[2025-05-17] MEDS: HEPARIN SOD/D5W 100 UNITS/ML 25,000 UNITS/250 ML BAG 36 UNITS IV CONT (18:20)
[2025-05-17 21:11] VITALS: O2SAT 95
[2025-05-17 22:00] VITALS: BP 135/88; PULSE 16; RESP 103; TEMP 36.9; O2SAT 96
[2025-05-18 00:06] LABS: Partial Thromboplastin Time 49.8 Seconds (22.3-36.8)
[2025-05-18] MEDS: HEPARIN SOD/D5W 100 UNITS/ML 25,000 UNITS/250 ML BAG 43 UNITS IV CONT ×3 (00:15→08:28)
[2025-05-18] MEDS: KETOROLAC 15 MG/ML VIAL (*BKC) IV PUSH ×2 (00:27→22:32)
[2025-05-18 06:00] VITALS: BP 126/88; PULSE 102; RESP 18; TEMP 36.4; O2SAT 96
[2025-05-18 07:11] LABS: Hematocrit 32.1 % (42.0-52.0); Hemoglobin 9.4 g/dL (14.0-18.0); Immature Granulocyte Percent A 2.9 % (0-0.5); Lymphocytes Absolute Auto 1.34 K/mm3 (0.9-3.2); Mean Corpuscular HGB Conc 29.3 g/dl (32-36); Mean Corpuscular Hemoglobin 23.5 pg (26-34); Mean Corpuscular Volume 80.3 fl (80-100); Nucleated Red Blood Cells Absolute Auto 0.000 K/mm3 (0.0-0.012); Nucleated Red Blood Cells Perc 0.0 % (0.0-0.2); Platelet Count Result 293 k/mm3 (150-375); Red Blood Count 4.00 M/mm3 (4.6-6.20); White Blood Count 10.2 K/mm3 (4.5-10.0)
[2025-05-18 07:23] LABS: Partial Thromboplastin Time 82.7 Seconds (22.3-36.8)
[2025-05-18 07:27] LABS: Anion Gap 11 mmol/L (4-12); Blood Urea Nitrogen 18 mg/dL (9-20); Calcium 8.7 mg/dL (8.4-10.2); Carbon Dioxide 28 mmol/L (22-30); Chloride 93 mmol/L (98-107); Estimated CRCL calculation 216 ml/min; Estimated Glomerular Filt Rate > 60; Glucose 109 mg/dL (65-110); Magnesium 2.2 mg/dL (1.6-2.3); Potassium 3.6 mmol/L (3.4-5.0); Sodium 132 mmol/L (137-145)
[2025-05-18 07:48] LABS: Anisocytosis 1+; Hypochromasia 1+; Schistocytes None Seen
[2025-05-18] MEDS: TRIAMCINOLONE ACET 0.1% CREAM 15 GM TUBE 1 APPLIC TOPICAL (09:00)
--- NOTE | 2025-05-18 09:46 | PM.IMPN ---
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: Code(s): I89.0 - Lymphedema, not elsewhere classified; R60.9 - Edema, unspecified Status: Acute (4) Edema of scrotum: Code(s): N50.89 - Other specified disorders of the male genital organs Status: Acute (5) Acquired buried penis: Code(s): N48.83 - Acquired buried penis Status: Acute (6) Deep venous thrombosis of left femoral vein: Code(s): I82.412 - Acute embolism and thrombosis of left femoral vein Status: Acute Plan Pleasant 30-year-old male with a past medical history of morbid obesity, congenital unilateral kidney and 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 The patient was initially evaluated in the ER on 05/10/2025 and returned to the ER on 05/13/2025 due to persistent scrotal swelling. He then noticed some increased swelling in his scrotum. The symptoms started about 2 weeks ago. Scrotal edema Lymphatic edema Diuresis appears to be working slightly. Scrotum still too big for the patient to ambulate. Lower extremity swelling is slightly improved. Continue daily weights and intake/output recording/monitoring. Urology still following. Patient is voiding without issue. Urology reconsulted for assistance in placing Moses catheter. Patient still has scrotal edema, increased Lasix to 40 mg q.8 hours IV DVT Lower extremity Doppler ultrasound demonstrates deep venous thrombosis of the common femoral, proximal superficial femoral, distal superficial femoral. Discontinue heparin drip Changed to Eliquis p.o. 10 mg q.12 hours for 7 days then 5 mg q.12 hours daily for at least 3 months Suspecting DIPIKA Patient declined ApneaLink. Morbid obesity He wants to follow-up in the outpatient setting along with bariatric surgery. Last Lasix dose 05/17/2025 at 9:00 a.m.. Anticipate discharge on 05/18/2025 in switching to oral anticoagulant. Advised the patient to begin ambulation today. Heparin GTT Saline lock IV. Full code. Subjective Date/time seen: 05/18/25 09:46 Interval history: Patient seen and examined at bedside in presents of patient's mother Patient still has severe scrotal swelling, cannot ambulate Denies chest pain Exam Narrative: GENERAL: Pleasant, in no acute distress. Well-nourished. - EYES: EOMI. Anicteric. - HENT: Moist mucous membranes. - LUNGS: Clear to auscultation bilaterally, no wheezing, rhonchi, or rales. - CARDIOVASCULAR: Regular rate and rhythm. No murmur. No JVD. - ABDOMEN: Soft, non-tender and non-distended. No palpable masses. - EXTREMITIES: No edema. Peripheral pulses 2+. Non-tender. - NEUROLOGIC: No focal neurological deficits. CN II-XII grossly intact. - PSYCHIATRIC: Awake, Alert and oriented x 3. Appropriate mood and affect. - SKIN: No rashes or lesions. Warm. - LYMPH: No cervical lymphadenopathy. Objective Data Vital Signs Vital Signs: Vital Signs - 24 hr 05/17/25 14:00 05/17/25 21:11 05/17/25 22:00 Temperature 98.3 F 98.4 F Pulse Rate 102 H 16 L Respiratory Rate 20 103 H Blood Pressure 144/87 H 135/88 Pulse Oximetry 95 95 96 Oxygen Delivery Room Air Fraction of Inspired Oxygen 21 05/18/25 06:00 05/18/25 08:00 Temperature 97.6 F Pulse Rate 102 H Respiratory Rate 18 Blood Pressure 126/88 Pulse Oximetry 96 Oxygen Delivery Room Air Fraction of Inspired Oxygen Intake/Output Intake/Output: Intake & Output 05/15/25 05/16/25 05/17/25 05/18/25 23:59 23:59 23:59 23:59 Intake Total 3240 1630 2845.7 664.1 Output Total 1450 2825 1700 275 Balance 1790 -1195 1145.7 389.1 Meds/Results Medications: Active Medications Generic Name Dose Route Start Last Admin Trade Name Freq PRN Reason Stop Dose Admin Acetaminophen 1,000 mg 05/14/25 00:29 05/17/25 23:09 Acetaminophen 500 Mg Tablet PO 1,000 mg Q6H PRN Administration Mild Pain (1-3) or Fever Heparin Sodium (Porcine) 10,000 units 05/16/25 17:37 05/18/25 00:15 Heparin Sodium 5,000 Units/Ml Vial IV PUSH 10,000 units PRN PRN Administration aPTT less than 55 seconds Heparin Sodium (Porcine) 6,500 units 05/16/25 17:37 Heparin Sodium 5,000 Units/Ml Vial IV PUSH PRN PRN aPTT 55 - 70 seconds Heparin Sodium/Dextrose 25,000 units in 250 mls @ 43 mls/hr 05/16/25 17:40 05/18/25 08:28 Heparin Sodium/D5w 100 Units/Ml IV CONT 4,300 units/hr .Q5H49M CATINA 43 mls/hr Administration Protocol 4,300 UNITS/HR Triamcinolone Acetonide 1 applic 05/14/25 09:00 05/17/25 09:39 Triamcinolone Acet 0.1% Cream 15 Gm Tube TOPICAL 1 applic DAILY CATINA Administration Radiology Results: ITS Impressions Scrotum Ultrasound 05/13/25 21:12 IMPRESSION: Severe scrotal edema. Otherwise, normal testicular ultrasound. Chest X-Ray 05/13/25 22:01 IMPRESSION: No acute cardiopulmonary pathology. Venous Doppler Study 05/16/25 17:28 IMPRESSION: DVT in the left lower extremity veins. Other appearances are unremarkable. Physician: Marie Salazar MD Was notified with the result of the patient at 5:55 PM on May 16, 2025 Labs Labs: Laboratory Results - last 24 hr 05/17/25 05/17/25 05/18/25 14:58 23:48 06:33 WBC 10.2 H RBC 4.00 L Hgb 9.4 L Hct 32.1 L MCV 80.3 MCH 23.5 L MCHC 29.3 L RDW 17.0 H Plt Count 293 MPV 10.5 H Immature Gran % (Auto) 2.9 H Neut % (Auto) 72.4 Lymph % (Auto) 13.1 L [place] % (Auto) 7.6 Eos % (Auto) 3.4 Baso % (Auto) 0.6 Lymph # (Auto) 1.34 [place] # (Auto) 0.8 H Eos # (Auto) 0.4 H Baso # (Auto) 0.1 Abs Immat Gran (auto) 0.30 H Absolute Neuts (auto) 7.4 H Absolute Nucleated RBC 0.000 Band Neutrophils % Not Reportable Nucleated RBC % 0.0 Platelet Estimate Adequate Hypochromasia 1+ Anisocytosis 1+ Schistocytes None seen APTT 39.3 H 49.8 H 82.7 H Sodium 132 L Potassium 3.6 Chloride 93 L Carbon Dioxide 28 Anion Gap 11 BUN 18 Creatinine 1.06 Estim Creat Clear Calc 216 Estimated GFR > 60 Glucose 109 Calcium 8.7 Magnesium 2.2
--- NOTE | 2025-05-18 11:36 | PCNFU ---
Nutrition Follow-Up Complete: Inadequate Oral Intake as related to Lower extremity edema as evidenced by poor po intake. Will continue to monitor po intake for any further nutritional interventions. - Monitoring. Intakes are good. Goal is being met Goal: Pt current nutrition is Heart healthy diet. Nutrition recommendation: No new nutrition recommendations. Continue current nutrition care plan and orders. Last recorded weight is 298.5 kg. Bowel Motility: +1 BMs 05/15 Labs Reviewed: Hgb 9.4, Hct 32.1, Na 132 Meds Noted: Lasix Skin: Edema Additional Notes: Pt lost 25 lbs on diuresis since admission. Eating mostly 100% meals, 5% breakfast today. Continue current care plan and monitoring. Agree with orders will monitor weight, labs, skin, diet orders, meds every 3 days.
[2025-05-18] MEDS: FUROSEMIDE INJ 40 MG/4 ML VIAL IV PUSH ×2 (12:26→21:16)
[2025-05-18] MEDS: ACETAMINOPHEN 500 MG TABLET 1000 MG PO ×2 (12:28→19:29)
[2025-05-18 14:00] VITALS: BP 147/76; PULSE 96; RESP 12; TEMP 36.3; O2SAT 97
[2025-05-18 20:58] VITALS: BP 145/92; PULSE 101; RESP 18; TEMP 36.9; O2SAT 97
[2025-05-18] MEDS: APIXABAN 5 MG TABLET 10 MG PO (21:15)
[2025-05-19 04:43] VITALS: BP 137/74; PULSE 104; RESP 20; TEMP 37.1; O2SAT 91
[2025-05-19] MEDS: FUROSEMIDE INJ 40 MG/4 ML VIAL IV PUSH ×3 (05:51→21:48)
[2025-05-19] MEDS: APIXABAN 5 MG TABLET 10 MG PO ×2 (08:44→21:47)
[2025-05-19] MEDS: ACETAMINOPHEN 500 MG TABLET 1000 MG PO ×3 (08:44→21:48)
[2025-05-19] MEDS: TRIAMCINOLONE ACET 0.1% CREAM 15 GM TUBE 1 APPLIC TOPICAL (08:45)
--- NOTE | 2025-05-19 10:44 | PM.IMPN ---
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: Code(s): I89.0 - Lymphedema, not elsewhere classified; R60.9 - Edema, unspecified Status: Acute (4) Edema of scrotum: Code(s): N50.89 - Other specified disorders of the male genital organs Status: Acute (5) Acquired buried penis: Code(s): N48.83 - Acquired buried penis Status: Acute (6) Deep venous thrombosis of left femoral vein: Code(s): I82.412 - Acute embolism and thrombosis of left femoral vein Status: Acute Plan Pleasant 30-year-old male with a past medical history of morbid obesity, congenital unilateral kidney and 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 The patient was initially evaluated in the ER on 05/10/2025 and returned to the ER on 05/13/2025 due to persistent scrotal swelling. He then noticed some increased swelling in his scrotum. The symptoms started about 2 weeks ago. Scrotal edema Lymphatic edema Diuresis appears to be working slightly. Scrotum still too big for the patient to ambulate. Lower extremity swelling is slightly improved. Continue daily weights and intake/output recording/monitoring. Urology still following. Patient is voiding without issue. Urology reconsulted for assistance in placing Moses catheter. Patient still has scrotal edema, increased Lasix to 40 mg q.8 hours IV on05/18 Patient have-1.6 L balance. Patient edema is improving. Labs reviewed, mild hyponatremia 132 on the baseline Continue IV Lasix today DVT Lower extremity Doppler ultrasound demonstrates deep venous thrombosis of the common femoral, proximal superficial femoral, distal superficial femoral. Discontinue heparin drip Changed to Eliquis p.o. 10 mg q.12 hours for 7 days then 5 mg q.12 hours daily for at least 3 months Suspecting DIPIKA Patient declined ApneaLink. Morbid obesity He wants to follow-up in the outpatient setting along with bariatric surgery. Had long discussion with the patient family about losing weight. Patient may try Ozempic IM to lose weight, management per primary care doctor Heparin GTT Saline lock IV. Full code. 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 Well-nourished. - EYES: EOMI. Anicteric. - HENT: Moist mucous membranes. - LUNGS: Clear to auscultation bilaterally, no wheezing, rhonchi, or rales. - CARDIOVASCULAR: Regular rate and rhythm. No murmur. No JVD. - ABDOMEN: Soft, non-tender and non-distended. No palpable masses. Severe scrotal edema - EXTREMITIES: No edema. Peripheral pulses 2+. Non-tender. - NEUROLOGIC: No focal neurological deficits. CN II-XII grossly intact. - PSYCHIATRIC: Awake, Alert and oriented x 3. Appropriate mood and affect. - SKIN: No rashes or lesions. Warm. - LYMPH: No cervical lymphadenopathy. Objective Data Vital Signs Vital Signs: Vital Signs - 24 hr 05/18/25 14:00 05/18/25 20:58 05/18/25 22:00 Temperature 97.3 F L 98.4 F Pulse Rate 96 101 H Respiratory Rate 12 18 Blood Pressure 147/76 H 145/92 H Pulse Oximetry 97 97 Oxygen Delivery Room Air 05/19/25 04:43 05/19/25 08:47 Temperature 98.7 F Pulse Rate 104 H Respiratory Rate 20 Blood Pressure 137/74 Pulse Oximetry 91 Oxygen Delivery Room Air Intake/Output Intake/Output: Intake & Output 05/16/25 05/17/25 05/18/25 05/19/25 23:59 23:59 23:59 23:59 Intake Total 1630 2845.7 1614.1 440 Output Total 2825 1700 1925 375 Balance -1195 1145.7 -310.9 65 Meds/Results Medications: Active Medications Generic Name Dose Route Start Last Admin Trade Name Freq PRN Reason Stop Dose Admin Acetaminophen 1,000 mg 05/14/25 00:29 05/19/25 08:44 Acetaminophen 500 Mg Tablet PO 1,000 mg Q6H PRN Administration Mild Pain (1-3) or Fever Apixaban 10 mg 05/18/25 21:00 05/19/25 08:44 Apixaban 5 Mg Tablet PO 05/25/25 20:59 10 mg Q12HR CATINA Administration Furosemide 40 mg 05/18/25 22:00 05/19/25 05:51 Furosemide Inj 40 Mg/4 Ml Vial IV PUSH 40 mg Q8H CATINA Administration Triamcinolone Acetonide 1 applic 05/14/25 09:00 05/19/25 08:45 Triamcinolone Acet 0.1% Cream 15 Gm Tube TOPICAL 1 applic DAILY CATINA Administration Radiology Results: ITS Impressions Scrotum Ultrasound 05/13/25 21:12 IMPRESSION: Severe scrotal edema. Otherwise, normal testicular ultrasound. Chest X-Ray 05/13/25 22:01 IMPRESSION: No acute cardiopulmonary pathology. Venous Doppler Study 05/16/25 17:28 IMPRESSION: DVT in the left lower extremity veins. Other appearances are unremarkable. Physician: Marie Salazar MD Was notified with the result of the patient at 5:55 PM on May 16, 2025
[2025-05-19 14:00] VITALS: BP 144/84; PULSE 105; RESP 12; TEMP 36.6; O2SAT 97
[2025-05-19 22:00] VITALS: BP 148/75; PULSE 92; RESP 20; TEMP 36.8; O2SAT 99
[2025-05-20] MEDS: FUROSEMIDE INJ 40 MG/4 ML VIAL IV PUSH ×3 (05:36→21:10)
[2025-05-20] MEDS: ACETAMINOPHEN 500 MG TABLET 1000 MG PO ×2 (05:39→11:24)
--- NOTE | 2025-05-20 05:53 | PC.NURSE ---
Pt's bed scale reading an 80+ lb weight gain. Informed patient we will zero bed scale next time he gets up to urinate.
[2025-05-20 06:00] VITALS: BP 135/85; PULSE 105; RESP 16; TEMP 36.8; O2SAT 98
[2025-05-20 08:57] LABS: Hematocrit 32.6 % (42.0-52.0); Hemoglobin 9.6 g/dL (14.0-18.0); Mean Corpuscular HGB Conc 29.4 g/dl (32-36); Mean Corpuscular Hemoglobin 23.4 pg (26-34); Mean Corpuscular Volume 79.5 fl (80-100); Platelet Count Result 275 k/mm3 (150-375); Red Blood Count 4.10 M/mm3 (4.6-6.20); White Blood Count 9.9 K/mm3 (4.5-10.0)
[2025-05-20 09:20] LABS: Alanine Aminotransferase 30 U/L (6-50); Albumin Level 3.9 g/dL (3.5-5.1); Alkaline Phosphatase 67 U/L (38-126); Anion Gap 12 mmol/L (4-12); Aspartate Amino Transferase 42 U/L (17-59); Bilirubin,Total 0.6 mg/dL (0.2-1.3); Blood Urea Nitrogen 18 mg/dL (9-20); Calcium 8.9 mg/dL (8.4-10.2); Carbon Dioxide 29 mmol/L (22-30); Chloride 92 mmol/L (98-107); Estimated CRCL calculation 204 ml/min; Estimated Glomerular Filt Rate > 60; Glucose 99 mg/dL (65-110); Magnesium 2.0 mg/dL (1.6-2.3); Potassium 3.7 mmol/L (3.4-5.0); Sodium 133 mmol/L (137-145); Total Protein 7.7 g/dL (6.3-8.2)
[2025-05-20] MEDS: TRIAMCINOLONE ACET 0.1% CREAM 15 GM TUBE 1 APPLIC TOPICAL (10:09)
[2025-05-20] MEDS: APIXABAN 5 MG TABLET 10 MG PO ×2 (10:09→21:11)
--- NOTE | 2025-05-20 12:01 | PC.NURSE ---
RN zeroed out bed and changed linens. Patient was only able to be out of bed briefly and bed gave odd warning after patient was back in bed. RN was able to obtain weight, but it may need done again.
[2025-05-20] MEDS: HYDROcodone/acetaminophen (*CRX) 5-325 MG TABLET 1 TAB PO ×3 (12:19→23:01)
[2025-05-20 14:00] VITALS: BP 140/74; PULSE 100; RESP 16; TEMP 36.8; O2SAT 97
--- NOTE | 2025-05-20 14:21 | PCDIET ---
Diet order: Heart Healthy. Spoke with patient and father today. Oral Intake has been poor 2/2 to patient not wanting to have a bowel movement. Encouraged PO intake and discussed nutrient dense foods to eat and limit high sodium based foods. Weight is down about 20 ibs 2/2 to Lasix. Discussed diet supplements, he refused at this time. Will continue to encouraged po intake and monitor every 3 days.
[2025-05-20] MEDS: LIDOCAINE 5% PATCH 3 PATCH TRANSDERM (14:28)
--- NOTE | 2025-05-20 17:36 | P.PNIM_ITS ---
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: Code(s): I89.0 - Lymphedema, not elsewhere classified; R60.9 - Edema, unspecified Status: Acute (4) Edema of scrotum: Code(s): N50.89 - Other specified disorders of the male genital organs Status: Acute (5) Acquired buried penis: Code(s): N48.83 - Acquired buried penis Status: Acute (6) Deep venous thrombosis of left femoral vein: Code(s): I82.412 - Acute embolism and thrombosis of left femoral vein Status: Acute Plan Pleasant 30-year-old male with a past medical history of morbid obesity, congenital unilateral kidney and 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 The patient was initially evaluated in the ER on 05/10/2025 and returned to the ER on 05/13/2025 due to persistent scrotal swelling. He then noticed some increased swelling in his scrotum. The sympto ms started about 2 weeks ago. Scrotal edema Lymphatic edema Diuresis appears to be working slightly. Scrotum still too big for the patient to ambulate. Lower extremity swelling is slightly improved. Continue daily weights and intake/output recording/monitoring. Urology still following. Patient is voiding without issue. Urology reconsulted for assistance in placing Moses catheter. Patient still has scrotal edema, increased Lasix to 40 mg q.8 hours IV on05/18 Patient have-1.6 L balance. Patient edema is improving. Labs reviewed, mild hyponatremia 132 on the baseline Continue IV Lasix today DVT Lower extremity Doppler ultrasound demonstrates deep venous thrombosis of the common femoral, proximal superficial femoral, distal superficial femoral. Discontinue heparin drip Changed to Eliquis p.o. 10 mg q.12 hours for 7 days then 5 mg q.12 hours daily for at least 3 months Suspecting DIPIKA Patient declined ApneaLink. Morbid obesity He wants to follow-up in the outpatient setting along with bariatric surgery. Had long discussion with the patient family about losing weight. Patient may try Ozempic IM to lose weight, management per primary care doctor Patient seen and examined at bedside in presents of patient's father Patient still has severe scrotal swelling, cannot ambulate, discuss with PT, may place a sling to lift his scrotum to help with pain and ambulation. Denies chest pain patient generalized edema, being diuresed with IV lasix 40mg q8, Negative balance -1630 mL, however patient urine output slow, will do cardiac echo to further evaluate and monitor, Patient feels better today, ambulate with assistance of physical therapist Heparin GTT Saline lock IV. Full code. 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 Denies chest pain patient generalized edema, being diuresed with IV lasix 40mg q8, Negative balance -1630 mL, however patient urine output slow, will do cardiac echo to further evaluate and monitor, Patient feels better today, ambulate with assistance of physical therapist Review of Systems Review of Systems: 12 systems were reviewed with pertinent positives and negatives per HPI. Except as documented in the HPI, all other systems were reviewed and are negative. All systems reviewed & are unremarkable except as noted in HPI and below (Subjective) Exam Narrative: Morbidly obese, BMI 90 Patient is comfortable, NAD HEENT: eyes are clear and none icteric LUNGS:CTA HEART: RR S1S2 ABD: BS+, Soft and nontender Lower extremities: edema SKIN: nonjaundiced Neuro: grossly intact. Objective Data Vital Signs Vital Signs: Vital Signs - 24 hr 05/19/25 19:50 05/19/25 22:00 05/20/25 06:00 Temperature 36.8 C 36.8 C Pulse Rate 92 105 H Respiratory Rate 20 16 Blood Pressure 148/75 H 135/85 Pulse Oximetry 99 98 Oxygen Delivery Room Air 05/20/25 08:00 05/20/25 14:00 Temperature 36.8 C Pulse Rate 100 Respiratory Rate 16 Blood Pressure 140/74 Pulse Oximetry 97 Oxygen Delivery Room Air Intake/Output Intake/Output: Intake & Output 05/17/25 05/18/25 05/19/25 05/20/25 23:59 23:59 23:59 23:59 Intake Total 2845.7 1614.1 1778 1360 Output Total 1700 1925 1900 850 Balance 1145.7 -310.9 -122 510 Meds/Results Medications: Active Medications Generic Name Dose Route Start Last Admin Trade Name Freq PRN Reason Stop Dose Admin Acetaminophen 1,000 mg 05/14/25 00:29 05/20/25 11:24 Acetaminophen 500 Mg Tablet PO 1,000 mg Q6H PRN Administration Mild Pain (1-3) or Fever Hydrocodone Bitart/Acetaminophen 1 tab 05/20/25 11:51 05/20/25 12:19 Hydrocodone/Acetaminophen (*Crx) 5-325 Mg Tablet PO 1 tab Q4H PRN Administration Pain Rated 4-6 Apixaban 10 mg 05/18/25 21:00 05/20/25 10:09 Apixaban 5 Mg Tablet PO 05/25/25 20:59 10 mg Q12HR CATINA Administration Furosemide 40 mg 05/18/25 22:00 05/20/25 14:35 Furosemide Inj 40 Mg/4 Ml Vial IV PUSH 40 mg Q8H CATINA Administration Lidocaine 3 patch 05/20/25 14:15 05/20/25 14:28 Lidocaine 5% Patch TRANSDERM 3 patch DAILY CATINA Administration Triamcinolone Acetonide 1 applic 05/14/25 09:00 05/20/25 10:09 Triamcinolone Acet 0.1% Cream 15 Gm Tube TOPICAL 1 applic DAILY CATINA Administration Radiology Results: ITS Impressions Scrotum Ultrasound 05/13/25 21:12 IMPRESSION: Severe scrotal edema. Otherwise, normal testicular ultrasound. Chest X-Ray 05/13/25 22:01 IMPRESSION: No acute cardiopulmonary pathology. Venous Doppler Study 05/16/25 17:28 IMPRESSION: DVT in the left lower extremity veins. Other appearances are unremarkable. Physician: Marie Salazar MD Was notified with the result of the patient at 5:55 PM on May 16, 2025 Labs Labs: Laboratory Results - last 24 hr 05/20/25 08:35 WBC 9.9 RBC 4.10 L Hgb 9.6 L Hct 32.6 L MCV 79.5 L MCH 23.4 L MCHC 29.4 L RDW 17.0 H Plt Count 275 MPV 9.8 D-Dimer 5.68 H Sodium 133 L Potassium 3.7 Chloride 92 L Carbon Dioxide 29 Anion Gap 12 BUN 18 Creatinine 1.12 Estim Creat Clear Calc 204 Estimated GFR > 60 Glucose 99 Calcium 8.9 Magnesium 2.0 Total Bilirubin 0.6 AST 42 ALT 30 Alkaline Phosphatase 67 Total Protein 7.7 Albumin 3.9 Quality VTE Prophylaxis VTE prophylaxis: pharmacologic ordered (Lovenox 40 mg subQ q.12 hours.)
[2025-05-20 22:00] VITALS: BP 144/76; PULSE 100; RESP 18; TEMP 37; O2SAT 98
--- NOTE | 2025-05-21 | ECHO_ITS ---
Patient Info Name: Shorty Lind Age: 30 years : 1995 Gender: Male Ht: 72 in Wt: 663 lbs BSA: 4.12 m2 HR: 95 bpm BP: 144 / 76 mmHg Technical Quality: Poor Exam Date: 05/21/2025 11:04 AM Patient Status: I Admit Date: 05/16/2025 Exam Type: CA echo dop color flow w con Complete two-dimensional, color flow and Doppler transthoracic echocardiogram is performed with contrast to opacify the left ventricle and to improve the deliniation of the left ventricle endocardial borders. Staff Referring Physician: Marie Salazar [employer] Clerk: Anahi Martinez Attending Provider: Natividad Borrero DO Contrast/Agitated Saline Contrast/Ag. Saline: Definity Amount: 2.00 ml Administered By: Anahi Martinez Existing IV Access: Yes IV Access Condition: patent with no signs of infiltration Reason for Poor Study: patient body habitus Summary 1. Technically difficult study with every poorly visualized acoustic windows with very limited views. 2. The overall left ventricular systolic function is normal. 3. Recommend repeating if clinically indicated. Left Ventricle The overall left ventricular systolic function is normal. Right Ventricle The right ventricle is not well visualized. Left Atria The left atrium is not well visualized. Right Atria The right atrium is not well visualized. Aortic Valve The aortic valve is not well visualized. Doppler gradients stenosis suggests hemodynamically significant stenosis. Pulmonic Valve The pulmonic valve is not well visualized. Mitral Valve The mitral valve is not well visualized. Tricuspid Valve The tricuspid valve is not well visualized. Aorta Aortic root at the level of the sinus of Valsalva measures 3.2 cm in diameter. Left Ventricular Outflow Tract Name Value Normal LVOT 2D LVOT Diameter 2.0 cm LVOT Doppler LVOT Peak Velocity 131 cm/s LVOT Peak Gradient 7 mmHg LVOT Mean Gradient 3 mmHg LVOT VTI 20 cm LVOT Stroke Volume 65 ml LVOT CO 6.2 l/min LVOT CI 1.5 l/min/m2 Pulmonic Valve Name Value Normal RVOT Doppler RVOT Peak Velocity 44 cm/s RVOT Peak Gradient 1 mmHg PV Doppler PV Peak Velocity 115 cm/s PV Peak Gradient 5 mmHg Mitral Valve Name Value Normal MV Diastolic Function MV E Peak Velocity 77 cm/s MV A Peak Velocity 66 cm/s MV E/A 1.2 MV Decel Time (PW) 237 ms MV Annular TDI MV E/e' (Septal) 5.0 MV E/e' (Lateral) 4.2 MV E/e' (Average) 4.6 Aortic Valve Name Value Normal AV Doppler AV Peak Velocity 173 cm/s AV Peak Gradient 12 mmHg AV Area (Cont Eq Jaxson) 2.4 cm2 AV DI (Jaxson) 0.76 AV Regurgitation 2D LVOT Area 3.2 cm2 Ventricles Name Value Normal LV Dimensions 2D/MM IVS Diastolic Thickness (2D) 1.1 cm 0.6-1.0 LVID Diastole (2D) 4.7 cm 4.2-5.8 LVIW Diastolic Thickness (2D) 1.2 cm 0.6-1.0 LVID Systole (2D) 3.2 cm 2.5-4.0 LVOT Diameter 2.0 cm LV Mass (2D Cubed) 205.04 g 88.00-224.00 LV Mass Index (2D Cubed) 50 g/m2 49-115 Relative Wall Thickness (2D) 0.53 <=0.42 LV Fractional Shortening/Ejection Fraction 2D/MM LV Fractional Shortening (2D) 32 % 25-43 LV EF (2D Teichholz) 60 % LV Diastolic Volume (4C MOD) 106 ml LV EF (4C MOD) 65 % LV Diastolic Volume (2C MOD) 100 ml LV EF (2C MOD) 52 % LV Diastolic Volume (BP MOD) 106 ml 62-150 LV Diastolic Volume Index (BP MOD) 26 ml/m2 34-74 LV Systolic Volume (BP MOD) 43 ml 21-61 LV Systolic Volume Index (BP MOD) 10 ml/m2 11-31 LV EF (BP MOD) 60 % 52-72 LV Diastolic Length (4C) 8.4 cm LV Systolic Length (4C) 6.6 cm LV Stroke Volume (4C MOD) 68 ml Atria Name Value Normal LA Dimensions LA Volume (4C A-L) 51 ml LA Volume (BP A-L) 62 ml RA Dimensions RA Systolic Major [place] Length (4C) 5.5 cm 2.1-2.7 RA Area (4C) 16.0 cm2 <=18.0 Report Signatures
[2025-05-21 05:36] LABS: Hematocrit 31.2 % (42.0-52.0); Hemoglobin 9.3 g/dL (14.0-18.0); Mean Corpuscular HGB Conc 29.8 g/dl (32-36); Mean Corpuscular Hemoglobin 23.9 pg (26-34); Mean Corpuscular Volume 80.2 fl (80-100); Platelet Count Result 308 k/mm3 (150-375); Red Blood Count 3.89 M/mm3 (4.6-6.20); White Blood Count 10.6 K/mm3 (4.5-10.0)
[2025-05-21] MEDS: FUROSEMIDE INJ 40 MG/4 ML VIAL IV PUSH ×3 (05:48→22:32)
[2025-05-21] MEDS: HYDROcodone/acetaminophen (*CRX) 5-325 MG TABLET 1 TAB PO ×3 (05:56→20:20)
[2025-05-21 06:00] VITALS: BP 134/84; PULSE 101; RESP 18; TEMP 36.4; O2SAT 97
[2025-05-21 06:21] LABS: Anion Gap 11 mmol/L (4-12); Blood Urea Nitrogen 19 mg/dL (9-20); Calcium 8.8 mg/dL (8.4-10.2); Carbon Dioxide 28 mmol/L (22-30); Chloride 92 mmol/L (98-107); Estimated CRCL calculation 210 ml/min; Estimated Glomerular Filt Rate > 60; Glucose 96 mg/dL (65-110); Magnesium 2.1 mg/dL (1.6-2.3); Potassium 3.4 mmol/L (3.4-5.0); Sodium 131 mmol/L (137-145)
[2025-05-21] MEDS: APIXABAN 5 MG TABLET 10 MG PO ×2 (09:08→20:21)
[2025-05-21] MEDS: TRIAMCINOLONE ACET 0.1% CREAM 15 GM TUBE 1 APPLIC TOPICAL (09:08)
[2025-05-21] MEDS: LIDOCAINE 5% PATCH 3 PATCH TRANSDERM (09:09)
[2025-05-21 09:10] VITALS: O2SAT 93
[2025-05-21] MEDS: PERFLUTREN LIPID MICROSPHERES 1.5 ML VIAL DILUTED TO 10 ML TOTAL VOLUME IV PUSH (11:44)
--- NOTE | 2025-05-21 11:45 | IVDEFINITY ---
Prior to administration of IV Definity the patient was educated on the risks and benefits of the imaging enhancing agent including potential adverse side effects. The patient verbalized understanding. Allergies were verified. No exclusion criteria were identified and at least one of the following inclusion criteria were met: 1) physician request, 2) patient technically difficult to image (per the [place] [employer] guidelines of two or more segments not discernable within the apical view), or 3) questionable left ventricular function. ?
[2025-05-21 14:00] VITALS: BP 124/69; PULSE 98; RESP 16; TEMP 36.8; O2SAT 93
--- NOTE | 2025-05-21 17:43 | PM.IMPN ---
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: Code(s): I89.0 - Lymphedema, not elsewhere classified; R60.9 - Edema, unspecified Status: Acute (4) Edema of scrotum: Code(s): N50.89 - Other specified disorders of the male genital organs Status: Acute (5) Acquired buried penis: Code(s): N48.83 - Acquired buried penis Status: Acute (6) Deep venous thrombosis of left femoral vein: Code(s): I82.412 - Acute embolism and thrombosis of left femoral vein Status: Acute Plan Pleasant 30-year-old male with a past medical history of morbid obesity, congenital unilateral kidney and 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 The patient was initially evaluated in the ER on 05/10/2025 and returned to the ER on 05/13/2025 due to persistent scrotal swelling. He then noticed some increased swelling in his scrotum. The symptoms started about 2 weeks ago. Scrotal edema Lymphatic edema Diuresis appears to be working slightly. Scrotum still too big for the patient to ambulate. Lower extremity swelling is slightly improved. Continue daily weights and intake/output recording/monitoring. Urology still following. Patient is voiding without issue. Urology reconsulted for assistance in placing Moses catheter. Patient still has scrotal edema, increased Lasix to 40 mg q.8 hours IV on05/18 Patient have-1.6 L balance. Patient edema is improving. Labs reviewed, mild hyponatremia 132 on the baseline Continue IV Lasix today DVT Lower extremity Doppler ultrasound demonstrates deep venous thrombosis of the common femoral, proximal superficial femoral, distal superficial femoral. Discontinue heparin drip Changed to Eliquis p.o. 10 mg q.12 hours for 7 days then 5 mg q.12 hours daily for at least 3 months Suspecting DIPIKA Patient declined ApneaLink. Morbid obesity He wants to follow-up in the outpatient setting along with bariatric surgery. Had long discussion with the patient family about losing weight. Patient may try Ozempic IM to lose weight, management per primary care doctor Patient seen and examined at bedside in presents of patient's father Patient still has severe scrotal swelling, cannot ambulate, discuss with PT, may place a sling to lift his scrotum to help with pain and ambulation. Denies chest pain patient generalized edema, being diuresed with IV lasix 40mg q8, Negative balance -1630 mL, however patient urine output slow, will do cardiac echo to further evaluate and monitor, Patient feels better today, ambulate with assistance of physical therapist, it seems patient urine output is not good to further evaluate will do cardiac echo, and further recommendation, patient stats he is feeling better, his family is present in the room, gave updates. Heparin GTT Saline lock IV. Full code. 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 Denies chest pain patient generalized edema, being diuresed with IV lasix 40mg q8, Negative balance -1630 mL, however patient urine output slow, will do cardiac echo to further evaluate and monitor, Patient feels better today, ambulate with assistance of physical therapist, it seems patient urine output is not good to further evaluate will do cardiac echo, and further recommendation, patient stats he is feeling better, his family is present in the room, gave updates. Review of Systems Review of Systems: 12 systems were reviewed with pertinent positives and negatives per HPI. Except as documented in the HPI, all other systems were reviewed and are negative. All systems reviewed & are unremarkable except as noted in HPI and below (Subjective) Exam Narrative: Morbidly obese, BMI 90 Patient is comfortable, NAD HEENT: eyes are clear and none icteric LUNGS:CTA HEART: RR S1S2 ABD: BS+, Soft and nontender Lower extremities: edema SKIN: nonjaundiced Neuro: grossly intact. Objective Data Vital Signs Vital Signs: Vital Signs - 24 hr 05/20/25 20:00 05/20/25 22:00 05/21/25 06:00 Temperature 37.0 C 36.4 C Pulse Rate 100 101 H Respiratory Rate 18 18 Blood Pressure 144/76 H 134/84 Pulse Oximetry 98 97 Oxygen Delivery Room Air 05/21/25 09:10 05/21/25 14:00 Temperature 36.8 C Pulse Rate 98 Respiratory Rate 16 Blood Pressure 124/69 Pulse Oximetry 93 93 Oxygen Delivery Room Air Intake/Output Intake/Output: Intake & Output 05/18/25 05/19/25 05/20/25 05/21/25 23:59 23:59 23:59 23:59 Intake Total 1614.1 1778 2030 540 Output Total 1925 1900 2250 275 Balance -310.9 -122 -220 265 Meds/Results Medications: Active Medications Generic Name Dose Route Start Last Admin Trade Name Freq PRN Reason Stop Dose Admin Acetaminophen 1,000 mg 05/14/25 00:29 05/20/25 11:24 Acetaminophen 500 Mg Tablet PO 1,000 mg Q6H PRN Administration Mild Pain (1-3) or Fever Hydrocodone Bitart/Acetaminophen 1 tab 05/20/25 11:51 05/21/25 13:49 Hydrocodone/Acetaminophen (*Crx) 5-325 Mg Tablet PO 1 tab Q4H PRN Administration Pain Rated 4-6 Apixaban 10 mg 05/18/25 21:00 05/21/25 09:08 Apixaban 5 Mg Tablet PO 05/25/25 20:59 10 mg Q12HR CATINA Administration Furosemide 40 mg 05/18/25 22:00 05/21/25 13:18 Furosemide Inj 40 Mg/4 Ml Vial IV PUSH 40 mg Q8H CATINA Administration Hydroxyzine HCl 50 mg 05/20/25 21:19 05/21/25 05:56 Hydroxyzine Hcl 25 Mg Tablet PO 50 mg Q6H PRN Administration Anxiety Lidocaine 3 patch 05/20/25 14:15 05/21/25 09:09 Lidocaine 5% Patch TRANSDERM 3 patch DAILY CATINA Administration Triamcinolone Acetonide 1 applic 05/22/25 09:00 Triamcinolone Acet 0.1% Cream 80 Gm Tube TOPICAL DAILY [facility] Radiology Results: ITS Impressions Scrotum Ultrasound 05/13/25 21:12 IMPRESSION: Severe scrotal edema. Otherwise, normal testicular ultrasound. Chest X-Ray 05/13/25 22:01 IMPRESSION: No acute cardiopulmonary pathology. Venous Doppler Study 05/16/25 17:28 IMPRESSION: DVT in the left lower extremity veins. Other appearances are unremarkable. Physician: Marie Salazar MD Was notified with the result of the patient at 5:55 PM on May 16, 2025 Labs Labs: Laboratory Results - last 24 hr 05/21/25 05:23 WBC 10.6 H RBC 3.89 L Hgb 9.3 L Hct 31.2 L MCV 80.2 MCH 23.9 L MCHC 29.8 L RDW 17.1 H Plt Count 308 MPV 10.1 Sodium 131 L Potassium 3.4 Chloride 92 L Carbon Dioxide 28 Anion Gap 11 BUN 19 Creatinine 1.09 Estim Creat Clear Calc 210 Estimated GFR > 60 Glucose 96 Calcium 8.8 Magnesium 2.1 Quality VTE Prophylaxis VTE prophylaxis: pharmacologic ordered (Lovenox 40 mg subQ q.12 hours.)
[2025-05-21 20:19] VITALS: BP 141/72; PULSE 100; RESP 18; TEMP 36.6; O2SAT 94
[2025-05-22] MEDS: HYDROcodone/acetaminophen (*CRX) 5-325 MG TABLET 1 TAB PO ×4 (01:58→19:48)
[2025-05-22] MEDS: FUROSEMIDE INJ 40 MG/4 ML VIAL IV PUSH ×3 (05:14→21:20)
[2025-05-22 05:20] VITALS: BP 130/72; PULSE 92; RESP 18; TEMP 36.6; O2SAT 101
[2025-05-22 05:31] LABS: Hematocrit 31.4 % (42.0-52.0); Hemoglobin 9.2 g/dL (14.0-18.0); Mean Corpuscular HGB Conc 29.3 g/dl (32-36); Mean Corpuscular Hemoglobin 23.7 pg (26-34); Mean Corpuscular Volume 80.9 fl (80-100); Platelet Count Result 321 k/mm3 (150-375); Red Blood Count 3.88 M/mm3 (4.6-6.20); White Blood Count 10.0 K/mm3 (4.5-10.0)
[2025-05-22 05:54] LABS: Anion Gap 11 mmol/L (4-12); Blood Urea Nitrogen 19 mg/dL (9-20); Calcium 8.9 mg/dL (8.4-10.2); Carbon Dioxide 30 mmol/L (22-30); Chloride 91 mmol/L (98-107); Estimated CRCL calculation 214 ml/min; Estimated Glomerular Filt Rate > 60; Glucose 99 mg/dL (65-110); Potassium 3.5 mmol/L (3.4-5.0); Sodium 132 mmol/L (137-145)
[2025-05-22] MEDS: APIXABAN 5 MG TABLET 10 MG PO ×2 (09:54→21:19)
[2025-05-22] MEDS: POTASSIUM CHLORIDE 20 MEQ PACKET (FOR LIQUID) 40 MEQ PO (09:54)
[2025-05-22] MEDS: LIDOCAINE 5% PATCH 3 PATCH TRANSDERM ×2 (09:55→13:43)
--- NOTE | 2025-05-22 10:40 | PCNFU ---
Nutrition Follow-Up Complete: Inadequate Oral Intake as related to Lower extremity edema as evidenced by poor po intake. Goal: Will continue to monitor po intake for any further nutritional interventions. Patient is not meeting goal, will continue current goal. Pt current nutrition is Heart Healthy. Nutrition recommendation: Ensure High Protein BID Last recorded weight is 299.5 kg, down from 310 kg on admit. Bowel Motility: Last reported BM 05/15 Labs Reviewed:Na 133, Hct 32.6, Hgb 9.6 Meds Noted: Lasix Skin: WNL Additional Notes: Spoke with patient today, regarding oral intake. Mainly drinking liquids and not eating. States he does not want to have a bowel movement 2/2 to having difficultly getting to bathroom. Discussed with Hospitalist today. I am recommending diet supplements for complete nutrition. PO intake encouraged. will monitor weight, labs, skin, diet orders, meds every 3 days.
[2025-05-22] MEDS: TRIAMCINOLONE ACET 0.1% CREAM 80 GM TUBE 1 APPLIC TOPICAL (13:42)
[2025-05-22 14:00] VITALS: BP 126/68; PULSE 86; RESP 18; TEMP 36.8; O2SAT 97
--- NOTE | 2025-05-22 17:14 | P.PNIM_ITS ---
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: Code(s): I89.0 - Lymphedema, not elsewhere classified; R60.9 - Edema, unspecified Status: Acute (4) Edema of scrotum: Code(s): N50.89 - Other specified disorders of the male genital organs Status: Acute (5) Acquired buried penis: Code(s): N48.83 - Acquired buried penis Status: Acute (6) Deep venous thrombosis of left femoral vein: Code(s): I82.412 - Acute embolism and thrombosis of left femoral vein Status: Acute Plan Pleasant 30-year-old male with a past medical history of morbid obesity, congenital unilateral kidney and 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 The patient was initially evaluated in the ER on 05/10/2025 and returned to the ER on 05/13/2025 due to persistent scrotal swelling. He then noticed some increased swelling in his scrotum. The sympto ms started about 2 weeks ago. 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 Scrotum still too big for the patient to ambulate. Lower extremity swelling is slightly improved. Continue daily weights and intake/output recording/monitoring. Urology still following. Patient is voiding without issue. Urology reconsulted for assistance in placing Moses catheter. Patient still has scrotal edema, increased Lasix to 40 mg q.8 hours IV on05/18 Patient have-1.6 L balance. Patient edema is improving. Labs reviewed, mild hyponatremia 132 on the baseline Continue IV Lasix today DVT Lower extremity Doppler ultrasound demonstrates deep venous thrombosis of the common femoral, proximal superficial femoral, distal superficial femoral. Discontinue heparin drip Changed to Eliquis p.o. 10 mg q.12 hours for 7 days then 5 mg q.12 hours daily for at least 3 months Suspecting DIPIKA Patient declined ApneaLink. Morbid obesity He wants to follow-up in the outpatient setting along with bariatric surgery. Had long discussion with the patient family about losing weight. Patient may try Ozempic IM to lose weight, management per primary care doctor Patient seen and examined at bedside in presents of patient's father Patient still has severe scrotal swelling, cannot ambulate, discuss with PT, may place a sling to lift his scrotum to help with pain and ambulation. Denies chest pain patient generalized edema, being diuresed with IV lasix 40mg q8, Negative balance -1630 mL, however patient urine output slow, will do cardiac echo to further evaluate and monitor, Patient feels better today, ambulate with assistance of physical therapist, it seems patient urine output is not good to further evaluate will do cardiac echo, and further recommendation, patient stats he is feeling better, his family is present in the room, gave updates. Heparin GTT Saline lock IV. Full code. relief worker is working working on rehab equipment before discharge Subjective Date/time seen: 05/22/25 17:14 Interval history: Patient seen and examined at bedside in presents of patient's father Patient still has severe scrotal swelling, cannot ambulate, discuss with PT, may place a sling to lift his scrotum to help with pain and ambulation. Denies chest pain patient generalized edema, being diuresed with IV lasix 40mg q8, Negative balance -1630 mL, however patient urine output slow, will do cardiac echo to further evaluate and monitor, Patient feels better today, ambulate with assistance of physical therapist, it seems patient urine output is not good to further evaluate will do cardiac echo, and further recommendation, patient stats he is feeling better, his family is present in the room, gave updates. 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 Except as documented in the HPI, all other systems were reviewed and are negative. All systems reviewed & are unremarkable except as noted in HPI and below (Subjective) Exam Narrative: Morbidly obese, BMI 90 Patient is comfortable, NAD HEENT: eyes are clear and none icteric LUNGS:CTA HEART: RR S1S2 ABD: BS+, Soft and nontender Lower extremities: edema SKIN: nonjaundiced Neuro: grossly intact. Objective Data Vital Signs Vital Signs: Vital Signs - 24 hr 05/21/25 20:19 05/22/25 05:20 05/22/25 08:00 Temperature 36.6 C 36.6 C Pulse Rate 100 92 Respiratory Rate 18 18 Blood Pressure 141/72 H 130/72 Pulse Oximetry 94 101 H Oxygen Delivery Room Air 05/22/25 14:00 Temperature 36.8 C Pulse Rate 86 Respiratory Rate 18 Blood Pressure 126/68 Pulse Oximetry 97 Oxygen Delivery Intake/Output Intake/Output: Intake & Output 05/19/25 05/20/25 05/21/25 05/22/25 23:59 23:59 23:59 23:59 Intake Total 1778 2030 1020 1150 Output Total 1900 2250 775 600 Balance -122 -220 245 550 Meds/Results Medications: Active Medications Generic Name Dose Route Start Last Admin Trade Name Freq PRN Reason Stop Dose Admin Acetaminophen 1,000 mg 05/14/25 00:29 05/20/25 11:24 Acetaminophen 500 Mg Tablet PO 1,000 mg Q6H PRN Administration Mild Pain (1-3) or Fever Hydrocodone Bitart/Acetaminophen 1 tab 05/20/25 11:51 05/22/25 12:37 Hydrocodone/Acetaminophen (*Crx) 5-325 Mg Tablet PO 1 tab Q4H PRN Administration Pain Rated 4-6 Apixaban 10 mg 05/18/25 21:00 05/22/25 09:54 Apixaban 5 Mg Tablet PO 05/25/25 20:59 10 mg Q12HR CATINA Administration Furosemide 40 mg 05/18/25 22:00 05/22/25 13:43 Furosemide Inj 40 Mg/4 Ml Vial IV PUSH 40 mg Q8H CATINA Administration Hydroxyzine HCl 50 mg 05/20/25 21:19 05/22/25 09:54 Hydroxyzine Hcl 25 Mg Tablet PO 50 mg Q6H PRN Administration Anxiety Lidocaine 3 patch 05/20/25 14:15 05/22/25 09:55 Lidocaine 5% Patch TRANSDERM 3 patch DAILY CATINA Administration Triamcinolone Acetonide 1 applic 05/22/25 09:00 05/22/25 13:42 Triamcinolone Acet 0.1% Cream 80 Gm Tube TOPICAL 1 applic DAILY CATINA Administration Radiology Results: ITS Impressions Scrotum Ultrasound 05/13/25 21:12 IMPRESSION: Severe scrotal edema. Otherwise, normal testicular ultrasound. Chest X-Ray 05/13/25 22:01 IMPRESSION: No acute cardiopulmonary pathology. Venous Doppler Study 05/16/25 17:28 IMPRESSION: DVT in the left lower extremity veins. Other appearances are unremarkable. Physician: Marie Salazar MD Was notified with the result of the patient at 5:55 PM on May 16, 2025 Labs Labs: Laboratory Results - last 24 hr 05/22/25 05:24 WBC 10.0 RBC 3.88 L Hgb 9.2 L Hct 31.4 L MCV 80.9 MCH 23.7 L MCHC 29.3 L RDW 17.2 H Plt Count 321 MPV 10.7 H Sodium 132 L Potassium 3.5 Chloride 91 L Carbon Dioxide 30 Anion Gap 11 BUN 19 Creatinine 1.07 Estim Creat Clear Calc 214 Estimated GFR > 60 Glucose 99 Calcium 8.9 Quality VTE Prophylaxis VTE prophylaxis: pharmacologic ordered (Lovenox 40 mg subQ q.12 hours.)
[2025-05-22 21:40] VITALS: BP 132/72; PULSE 100; RESP 20; TEMP 36.6; O2SAT 96
[2025-05-23] MEDS: HYDROcodone/acetaminophen (*CRX) 5-325 MG TABLET 1 TAB PO ×3 (00:55→12:49)
[2025-05-23] MEDS: FUROSEMIDE INJ 40 MG/4 ML VIAL IV PUSH ×2 (05:18→12:49)
[2025-05-23 06:00] VITALS: BP 120/69; PULSE 97; RESP 18; TEMP 36.6; O2SAT 98
[2025-05-23 06:12] LABS: Hematocrit 31.6 % (42.0-52.0); Hemoglobin 9.1 g/dL (14.0-18.0); Immature Platelet Fraction Pct 3.2 % (0.9-11.2); Mean Corpuscular HGB Conc 28.8 g/dl (32-36); Mean Corpuscular Hemoglobin 23.3 pg (26-34); Mean Corpuscular Volume 80.8 fl (80-100); Platelet Count Result 345 k/mm3 (150-375); Red Blood Count 3.91 M/mm3 (4.6-6.20); White Blood Count 9.3 K/mm3 (4.5-10.0)
[2025-05-23 06:35] LABS: Blood Urea Nitrogen 19 mg/dL (9-20); Calcium 8.9 mg/dL (8.4-10.2); Carbon Dioxide 32 mmol/L (22-30); Estimated CRCL calculation 209 ml/min; Estimated Glomerular Filt Rate > 60; Glucose 95 mg/dL (65-110)
[2025-05-23 06:43] LABS: Anion Gap 9 mmol/L (4-12); Chloride 91 mmol/L (98-107); Potassium 3.3 mmol/L (3.4-5.0); Sodium 132 mmol/L (137-145)
[2025-05-23] MEDS: LIDOCAINE 5% PATCH 3 PATCH TRANSDERM (09:07)
[2025-05-23] MEDS: APIXABAN 5 MG TABLET 10 MG PO (09:07)
[2025-05-23] MEDS: POTASSIUM CHLORIDE 20 MEQ PACKET (FOR LIQUID) 40 MEQ PO (09:08)
--- NOTE | 2025-05-23 11:45 | P.DS_ITS ---
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 The patient was initially evaluated in the ER on 05/10/2025 and returned to the ER on 05/13/2025 due to persistent scrotal swelling. He then noticed some increased swelling in his scrotum. The symptoms started about 2 weeks ago. 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 Scrotum still too big for the patient to ambulate. Lower extremity swelling is slightly improved. Continue daily weights and intake/output recording/monitoring. Urology still following. Patient is voiding without issue. Urology reconsulted for assistance in placing Moses catheter. Patient still has scrotal edema, increased Lasix to 40 mg q.8 hours IV on05/18 Patient have-1.6 L balance. Patient edema is improving. Labs reviewed, mild hyponatremia 132 on the baseline Continue IV Lasix today DVT Lower extremity Doppler ultrasound demonstrates deep venous thrombosis of the common femoral, proximal superficial femoral, distal superficial femoral. Discontinue heparin drip Changed to Eliquis p.o. 10 mg q.12 hours for 7 days then 5 mg q.12 hours daily for at least 3 months Suspecting DIPIKA Patient declined ApneaLink. Morbid obesity He wants to follow-up in the outpatient setting along with bariatric surgery. Had long discussion with the patient family about losing weight. Patient may try Ozempic IM to lose weight, management per primary care doctor Patient seen and examined at bedside in presents of patient's father Patient still has severe scrotal swelling, cannot ambulate, discuss with PT, may place a sling to lift his scrotum to help with pain and ambulation. Denies chest pain patient generalized edema, being diuresed with IV lasix 40mg q8, Negative balance -1630 mL, however patient urine output slow, will do cardiac echo to further evaluate and monitor, Patient feels better today, ambulate with assistance of physical therapist, it seems patient urine output is not good to further evaluate will do cardiac echo, and further recommendation, patient stats he is feeling better, his family is present in the room, gave updates. Heparin GTT Saline lock IV. Full code. community arts worker is working working on rehab equipment before discharge DS: Summary Hospital Course Hospital Course: Patient seen and examined at bedside in presents of patient's father Patient still has severe scrotal swelling, cannot ambulate, discuss with PT, may place a sling to lift his scrotum to help with pain and ambulation. Denies chest pain patient generalized edema, being diuresed with IV lasix 40mg q8, Negative balance -1630 mL, however patient urine output slow, will do cardiac echo to further evaluate and monitor, Patient feels better today, ambulate with assistance of physical therapist, it seems patient urine output is not good to further evaluate will do cardiac echo, and further recommendation, patient stats he is feeling better, his family is present in the room, gave updates. today patient feels better and able to do his ADL, will discharge patient today. Time Spent with Patient Time attestation: Total time spent providing and/or coordinating discharge services: Exam Narrative: Morbidly obese, BMI 90 Patient is comfortable, NAD HEENT: eyes are clear and none icteric LUNGS:CTA HEART: RR S1S2 ABD: BS+, Soft and nontender Lower extremities: edema SKIN: nonjaundiced Neuro: grossly intact. DS: Data Data Completed and Pending Labs on day of discharge: Labs from last 24 hours 05/23/25 05:48 WBC 9.3 RBC 3.91 L Hgb 9.1 L Hct 31.6 L MCV 80.8 MCH 23.3 L MCHC 28.8 L RDW 17.3 H Plt Count 345 MPV 13.0 H % Immature Plt Fraction 3.2 Sodium 132 L Potassium 3.3 L Chloride 91 L Carbon Dioxide 32 H Anion Gap 9 BUN 19 Creatinine 1.10 Estim Creat Clear Calc 209 Estimated GFR > 60 Glucose 95 Calcium 8.9 Discharge Plan Discharge Attending physician on discharge: Natividad Borrero Consulting providers: Gorge Davidson; Danika Lainez; Lang Duckworth; Marie Salazar; Sterling Madrigal; Jose David Jauregui; Beatriz,En Fox Discharging Clinician: Ursula Pitts Patient Disposition: Home Activity: as tolerated Diet: heart healthy Discharge Instructions: Patient to follow up with his primary care provider as soon as possible, patient is instructed to ambulate as much as tolerated, patient is instructed if symptoms worsen to go to nearest ER. Patient to first finish Apixaban 10mg twice a day thereafter start on 5mg BID. Patient Instructions: Antibiotic Form, Apixaban (By mouth), Low Fat Diet (DC), Shopping for a Healthy Diet (DC), Weight Management (DC), Calorie Counting Diet (GEN), Meal Planning with the Plate Method (DC), Low-Sodium Diet (DC), Mediterranean Diet (DC) Patient Language: Slovak Stand Alone Forms: General Discharge Information Follow-up/Referrals: Gorge Davidson MD [Physician] - Mikie Hurt MD [Physician] - Discharge Medications: New lidocaine [Lidoderm] 5 % Adhesive Patch,Medicated 3 patch transdermal DAILY Qty: 30 0RF hydroxyzine HCl 25 mg Tablet 50 mg PO Q6H PRN (Reason: Anxiety) Qty: 60 0RF Eliquis 5 mg Tablet 10 mg PO Q12HR Qty: 5 0RF apixaban 5 mg tablet 5 mg PO BID Qty: 60 0RF furosemide [Lasix] 40 mg tablet 40 mg PO BID Qty: 30 0RF potassium chloride 20 mEq packet 20 meq PO DAILY Qty: 30 0RF hydrocodone-acetaminophen 5-325 mg tablet 1 tablet PO Q8H PRN (Reason: pain) Qty: 15 0RF Continued triamcinolone acetonide 0.1 % cream 1 applic TOPICAL DAILY Rx Instructions: bilateral legs acetaminophen [Tylenol] 325 mg tablet 650 mg PO Q6H PRN (Reason: pain) Discontinued furosemide [Lasix] 20 mg tablet 20 mg PO DAILY Rx Instructions: x7 days Date of admission: 05/16/25 15:15 Primary Care Provider: PHYSICIAN,OIL ANALYST Admitting Provider: Natividad Borrero Attending physician on admission: Ursula Pitts Condition: Stable
== END 2025-05-23 14:57 | disposition home or self-care (01) | DRG 729 ==
LOC: ANHED 22:07 → ANH3MED 22:41
PROVIDERS: General Practice; Admitting Provider Internal Medicine; Emergency Provider Emergency Medicine; Visit Provider Family Medicine
DX: N50.89 Other specified disorders of the male genital organs (principal); E87.1 Hypo-osmolality and hyponatremia; I82.412 Acute embolism and thrombosis of left femoral vein; Z68.45 Body mass index [BMI] 70 or greater, adult; N48.83 Acquired buried penis; E66.01 Morbid (severe) obesity due to excess calories; R60.9 Edema, unspecified; R06.83 Snoring
CPT/HCPCS: 36415; 71045; 76870; 80048; 80053; 81001; 83036; 83735; 83880; 85025; 85027; 85055; 85380; 85610; 85652; 85730; 86140; 93005; 93970; 93976; 96372; 96374; 96375; 96376; 97110; 97116; 97162; 97166; 97530; 97535; 99285; A9270; C8929; G0378; J1644; J1650; J1885; J1938; Q9957